=== PATIENT | female | born 1945 | race Caucasian/White ===

== ENCOUNTER 2020-03-29 14:19 | Outpatient (CLI) | payer MEDICARE, BC, SELFPAY ==
--- NOTE | ~2020-03-29 | XR_ITS ---
EXAMINATION: XR knee LT 2V DATE: 03/29/2020 15:05 INDICATION: Left knee pain. TECHNIQUE: 2 views of left knee were obtained. COMPARISON: None. FINDINGS: Bone alignment is normal. No fracture. There is mild osteoarthritis of medial and lateral c ompartments and moderate osteoarthritis of patellofemoral compartment. There is a moderate-sized knee joint effusion. IMPRESSION: 1. Moderate left knee osteoarthritis. 2. Moderate-sized left knee joint effusion. Reviewed, dictated and finalized at location B.
--- NOTE | ~2020-03-29 | US_ITS ---
EXAMINATION: US venous doppler [facility] EXAM DATE: 03/29/2020 15:08 INDICATION: Left calf swelling. TECHNIQUE: Multiple grayscale, color flow and Doppler images of the left lower extremity deep venous system were obtained and reviewed. There is no prior study for comparison. FINDINGS: The left common femoral, femoral and profunda veins demonstrate normal color flow, respirat ory variation, augmentation and compressibility. Compressibility, color flow confirmed within the le ft popliteal, posterior tibial, peroneal, and greater saphenous veins. IMPRESSION: 1. No left lower extremity deep venous thrombosis. Reviewed, dictated and finalized at location A.
== END 2020-03-29 14:20 | disposition home or self-care (01) ==
LOC: ANHIMG 14:29
PROVIDERS: PCP Internal Medicine; Visit Provider Nurse Practitioner
DX: M17.12 Unilateral primary osteoarthritis, left knee (principal); M25.462 Effusion, left knee
CPT/HCPCS: 73560; 93971

== ENCOUNTER 2020-04-25 06:57 | Emergency (ER) | payer MEDICARE, BC, SELFPAY ==
[2020-04-25] VITALS (7 sets, daily range): BP systolic 121–140; BP diastolic 61–88; PULSE 60–99; RESP 11–20; TEMP 36.6; O2SAT 99–100
--- NOTE | 2020-04-25 07:23 | ECG_ITS ---
Measurements Intervals [place] Rate: 72 P: 74 [place]: 153 QRS: -10 QRSD: 104 T: 69 QT: 356 QTc: 392 Interpretive Statements SINUS RHYTHM NORMAL ECG Electronically Signed On 04-25-2020 8:19:41 CDT by Herb Lozano D.O.
--- NOTE | 2020-04-25 07:49 | PC.NURSE ---
ERP AT BEDSIDE ASSESSING PT. PT TO ATTEMPT URINE SAMPLE WHEN DONE.
--- NOTE | 2020-04-25 07:51 | ED.DIZZY ---
HPI - Dizziness General Chief Complaint: Dizziness Stated Complaint: dizzy Time Seen by Provider: 04/25/20 07:07 Source: patient Mode of arrival: ambulatory Limitations: no limitations History of Present Illness HPI Narrative: THis patient is a 74 year old female who presents for evaluation of dizziness. She states she woke up around 5 am this morning. She noticed when she turned her head she developed spinning sensation. This feeling continued when she got up to use the restroom. She denies dizziness or vertigo now. She denies having associated nausea, vomiting, blurred vision, diplopia or headache. She has noticed over past 3 days she is having intermittent palpitations. She also denies focal weakness. Related Data Home Medications Medication Instructions Recorded Confirmed docusate sodium 100 mg capsule 100 mg PO DAILY PRN 09/14/19 03/28/20 polyethylene glycol 3350 17 17 gm PO DAILY 09/14/19 03/28/20 gram/dose oral powder naproxen sodium 220 mg tablet 220 mg PO Q12H PRN 03/28/20 03/28/20 Allergies Allergy/AdvReac Type Severity Reaction Status Date / Time No Known Allergies Allergy Unknown Uncoded 03/28/20 14:16 Review of Systems Review of Systems: All systems reviewed & are unremarkable except as noted in HPI and below Constitutional: Constitutional: Denies chills and Denies fever(s) Eyes: Eyes: Reports no additional eye complaints ENT: Reports dizziness and Denies nasal congestion Cardiovascular: Cardiovascular: Denies chest pain, Denies radiating jaw, neck or arm pain and Reports other (palpitation) Respiratory: Respiratory: Denies cough and Denies wheezing Gastrointestinal: Gastrointestinal: Denies abdominal pain, Reports diarrhea, Denies nausea and Denies vomiting Neurologic: Reports vertigo, Reports dizziness, Denies focal weakness and Denies numbness PMFSH Social History Social History Smoking status: Never smoker Alcohol intake: current Gender identity (if verbalized by the patient): Female Exam Narrative: Exam Narrative: GENERAL: Well-appearing, well-nourished, and in no acute distress. HEAD: Normocephalic, atraumatic EYES: PERRLA and EOMI, conjunctiva clear without discharge EARS: TM's clear bilaterally without erythema or dullness NOSE: Nares clear, no rhinorrhea or epistaxis THROAT:Mucous membranes moist, Oropharynx normal without erythema, exudate, peritonsillar swelling or fluctuance NECK: Supple, without lymphadenopathy or mass RESPIRATORY: No respiratory distress, Airway patent, Respirations non-labored, Clear to auscultation without rales, rhonchi or wheeze HEART: Regular rate and rhythm. No murmur heard. Normal peripheral pulses. ABDOMEN: Soft, nontender, nondistended, normal active bowel sounds. No masses. No rebound or guarding, No organomegaly. EXTREMITIES: No edema, normal strength with full range of motion. SKIN: Warm, dry, normal color without rash NEURO: Alert and oriented x3. CN 2-12 grossly intact. No focal deficits. PSYCH: Normal mood and affect. Course Reevaluation(s) Reevaluation #1: Patient has no symptoms. She reports she feels better. I Discussed labs are unremarkable. Date: 04/25/20 Time: 09:11 Vital Signs Vital signs: Vital Signs Temperature 97.9 F 04/25/20 07:09 Pulse Rate 79 04/25/20 07:09 Respiratory Rate 20 04/25/20 07:09 Blood Pressure 140/88 04/25/20 07:09 Pulse Oximetry 99 04/25/20 07:09 Temperature 97.9 F 04/25/20 07:09 Pulse Rate 63 04/25/20 09:21 Respiratory Rate 12 04/25/20 09:21 Blood Pressure 127/67 04/25/20 09:21 Pulse Oximetry 100 04/25/20 09:21 MDM - Dizziness Lab Data Attestation: I reviewed the patient's lab results. Result diagrams: 04/25/20 07:48 04/25/20 07:48 Labs: Lab Results 04/25/20 04/25/20 04/25/20 Range/Units 07:48 07:48 07:53 WBC 7.7 (4.5-10.0) K/mm3 RBC 4.
--- NOTE | 2020-04-25 08:02 | PC.NURSE ---
PT TO BATHROOM AT THIS TIME TO RETRIEVE UA, PT HAS STEADY GAIT, AMBULATED WITHOUT DIFFICULTY OR ASSISTANCE. DENIES DIZZINESS W/ AMBULATION.
[2020-04-25] MEDS: MECLIZINE HCL 25 MG TABLET PO (08:07)
[2020-04-25 08:09] LABS: Basophils Percent Auto 0.3 % (0.2-1.2); Eosinophils Absolute Auto 0.1 K/mm3 (0-0.3); Eosinophils Percent Auto 0.9 % (0-4.4); Hematocrit 40.8 % (37.0-47.0); Hemoglobin 13.5 g/dL (12.0-15.0); Immature Granulocyte Absolute 0.03 K/mm3 (0.00-0.031); Immature Granulocyte Percent A 0.4 % (0-0.5); Lymphocytes Percent Auto 20.7 % (18.3-44.2); Mean Corpuscular HGB Conc 33.1 g/dl (32-36); Mean Corpuscular Volume 96.7 fl (80-100); Mean Platelet Volume 8.8 fl (7.4-10.4); Monocytes Absolute Auto 0.3 K/mm3 (0.1-0.6); Monocytes Percent Auto 4.3 % (2.6-8.5); Neutrophils Absolute Auto 5.7 K/mm3 (1.3-6.7); Neutrophils Percent Auto 73.4 % (45.5-73.1); Platelet Count Result 204 k/mm3 (150-375); Red Blood Count 4.22 M/mm3 (4.2-5.4); Red Cell Distribution Width 13.3 % (11.5-14.5); White Blood Count 7.7 K/mm3 (4.5-10.0)
[2020-04-25 08:11] LABS: Add Urine Microscopic? NO; Appearance Urine Clear (Clear); Bilirubin Urine Negative (Negative); Blood Urine Negative (Negative); Color Urine Yellow (Yellow); Glucose Urine UA Negative (Negative); Ketones Urine Negative (Negative); Leukocyte Esterase Ur Negative LEU/UL (Negative); Nitrate Urine Negative (Negative); Protein Urine Negative (Negative); Specific Grav Ur 1.015 (1.001-1.035); Urobilinogen Urine Negative mg/dL (<2.0)
[2020-04-25 08:29] LABS: Alanine Aminotransferase 14 U/L (4-35); Alkaline Phosphatase 51 U/L (38-126); Anion Gap 9 mmol/L (8-16); Aspartate Amino Transferase 24 U/L (14-36); Bilirubin,Total 0.4 mg/dL (0.2-1.3); Blood Urea Nitrogen 16 mg/dL (7-17); Calcium 9.1 mg/dL (8.4-10.2); Carbon Dioxide 25 mmol/L (22-30); Chloride 108 mmol/L (98-107); Estimated CRCL calculation 52 ml/min; Estimated Glomerular Filt Rate > 60; Glucose 105 mg/dL (65-105); Magnesium 2.1 mg/dL (1.6-2.3); Potassium 4.3 mmol/L (3.4-5.0); Sodium 142 mmol/L (137-145)
[2020-04-25 08:32] LABS: Troponin I < 0.012 ng/mL (0.000-0.034)
== END 2020-04-25 09:23 | disposition home or self-care (01) ==
PROVIDERS: Emergency Provider General Practice; PCP Internal Medicine
DX: R42 Dizziness and giddiness (principal)
CPT/HCPCS: 36415; 80053; 81003; 83735; 84484; 85025; 93005; 99284; A9270

== ENCOUNTER → 2020-04-28 10:24 | Outpatient (CLI) | payer MEDICARE, BC, SELFPAY ==
--- NOTE | ~2020-04-28 | MM_ITS ---
EXAMINATION: MM screening [facility] BI w anthony HISTORY: Screening TECHNIQUE: Craniocaudal and mediolateral oblique 3-D tomosynthesis images were obtained and synthetic 2-D images were generated. CAD analysis was submitted and interpreted. COMPARISON: Comparison to multiple prior studies sequentially, with oldest reviewed study dated 06/19. BREAST PARENCHYMAL COMPOSITION: There are scattered areas of fibroglandular density. FINDINGS: There are stable benign-appearing breast calcifications. There is no evidence of suspicious mass, calcification, or architectural distortion to suggest malignancy in either breast. There has b een no suspicious interval change. IMPRESSION: 1. No mammographic evidence of malignancy. 2. Recommend routine screening mammography in one year. BI-RADS Category 2: Benign finding(s). Reviewed, dictated and finalized at location A.
== END ==
PROVIDERS: PCP Internal Medicine; Visit Provider Obstetrics & Gynecology
DX: Z12.31 Encounter for screening mammogram for malignant neoplasm of breast (principal)
CPT/HCPCS: 77063; 77067

== ENCOUNTER 2020-05-08 11:05 | Outpatient (CLI) | payer MEDICARE, BC, SELFPAY ==
--- NOTE | 2020-05-11 14:58 | WPDHOLTEREM ---
Holter/Event Monitor Holter/Event Monitor Date of procedure: 05/08/20 Procedure Type: 48 hour holter monitor Indications: Palpitations Conclusion: 1. 48 hour holter monitor on 05/08/20. 2. Predominant rhythm is sinus rhythm. HR range 45-143 bpm; average HR 70 bpm. 3. There are 409 premature supraventricular complexes, 19 supraventricular couplets. There are 26 episodes of atrial tachycardia, fastest at 174 bpm and longest lasting 77 beats. 4. There are 158 premature ventricular complexes. One episode of ventricular tachycardia at 128 bpm lasting 8 beats. 5. No sinoatrial or atrioventricular blocks. No significant pauses greater than 2 seconds. 6. Patient reports fast heart beat, lightheadedness, flutters which demonstrate sinus rhythm, HR range 67-83 bpm.
== END 2020-05-08 11:06 | disposition home or self-care (01) ==
PROVIDERS: PCP Internal Medicine; Visit Provider Internal Medicine
DX: R00.2 Palpitations (principal)
CPT/HCPCS: 93225; 93226

== ENCOUNTER 2020-09-18 11:04 | Outpatient (CLI) | payer MEDICARE, BC, SELFPAY ==
--- NOTE | 2020-09-20 12:52 | WPDHOLTEREM ---
Holter/Event Monitor Holter/Event Monitor Date of procedure: 09/18/20 Procedure Type: 24 hour holter monitor Indications: Palpitations Conclusion: 1. 24 hour holter monitor on 09/18/20. 2. Underlying rhythm is sinus rhythm with sinus arrhythmia. HR range 48-115 bpm; average HR 69 bpm. 3. There are 165 premature supraventricular complexes. No supraventricular tachycardia. 4. There are 72 premature ventricular complexes. No ventricular tachycardia. 5. No sinoatrial or atrioventricular blocks. No significant pauses greater than 2 seconds. 6. Patient reports symptoms of lightheadedness and palpitations which demonstrate sinus rhythm, HR range 74-86 bpm.
== END 2020-09-18 11:05 | disposition home or self-care (01) ==
PROVIDERS: Family Provider Internal Medicine; PCP Internal Medicine; Visit Provider Internal Medicine
DX: R00.2 Palpitations (principal)
CPT/HCPCS: 93225; 93226

== ENCOUNTER 2020-11-04 09:53 | Outpatient (CLI) | payer MEDICARE, BC, SELFPAY ==
--- NOTE | ~2020-11-04 | DEXA_ITS ---
Bone Density Report Name: Lenka Florence Age: 75 Sex: Female Ethnicity: White Date of : 1945 Indication: postmenopausal; height loss; hysterectomy; Referring Provider: Bhumi Tiwari Study: Bone densitometry was performed. Exam Date: November 04, 2020 Accession number: [id number] Bone Density: Region BMD T-score Z-score Classification AP Spine (L1, L2, L4) 1.113 0.7 3.0 Normal Femoral Neck (Left) 0.736 -1.0 1.0 Normal Total Hip (Left) 0.806 -1.1 0.6 Osteopenia Total Hip Bilateral Avg 0.801 -1.2 0.6 Osteopenia Femoral Neck (Right) 0.757 -0.8 1.2 Normal Total Hip (Right) 0.796 -1.2 0.5 Osteopenia World Health Organization criteria for BMD impression classify patients as: Normal (T-score at or above -1.0), Osteopenia (T-score between -1.0 and -2.5), or Osteoporosis (T-score at or below -2.5). 10-year Fracture Risk(1): Major Osteoporotic Fracture 9.3% Hip Fracture 1.3% Reported Risk Factors: [place] (), Neck BMD=0.736, BMI=24.0 (1) FRAX(R) Version 3.08. Fracture probability calculated for an untreated patient. Fracture probability may be lower if the patient has received treatment. Clinical Information Provided by Patient: Has the following medical conditions: Hysterectomy Patient maximum height was 67 Menopause Age: 39 No regular weight bearing exercise Drinks caffeinated beverages Onset of menses at age 13 Number of children 0 Impression: The patient has low bone mass, based on the Right Total Hip T-score. The patient has an estimated ten-year risk of hip fracture of 1.3% and an estimated ten-year risk of major fracture of 9.3%, based on the WHO FRAX algorithm. Discussion: BONE DENSITY IS LOW AT ONE OR MORE SKELETAL SITES. This patient's lowest T-score is low at one or more skeletal sites. It meets the World Health Organization's (WHO) criteria for ?low bone mass? (T-score between -1.0 and -2.5). The patient's 10-year risk of fracture as calculated by FRAX is less than the threshold where pharmacological therapy is recommended by the National Osteoporosis Foundation (NOF). However, all treatment decisions require clinical judgment and consideration of individual patient factors, including patient preferences, comorbidities, previous drug use, risk factors not captured in the FRAX model (e.g., frailty, falls, vitamin D deficiency, increased bone turnover, interval significant decline in bone density) and possible under or overestimation of fracture risk by FRAX. The patient should follow a healthful lifestyle (good nutrition with adequate calcium and vitamin D, and appropriate weight-bearing exercise). Follow-Up: Consider repeating this study in 2 to 3 years to reassess this patient's status, or sooner if there is some new clinical indication. Reported by: [facility] on 11/04/2020
== END 2020-11-04 09:54 | disposition home or self-care (01) ==
LOC: ANHIMG 09:55
PROVIDERS: PCP Internal Medicine; Visit Provider Nurse Practitioner
DX: Z78.0 Asymptomatic menopausal state (principal); M85.852 Other specified disorders of bone density and structure, left thigh; M85.851 Other specified disorders of bone density and structure, right thigh
CPT/HCPCS: 77080

== ENCOUNTER 2020-11-16 09:45 | Outpatient (CLI) | payer MEDICARE, BC, SELFPAY ==
--- NOTE | ~2020-11-16 | XR_ITS ---
EXAMINATION: XR chest 2V 11/16/2020 10:01 INDICATION: Shortness of breath PROCEDURE: PA and lateral views of the chest COMPARISON: 12/11/2017 FINDINGS: The lungs are clear. The cardiomediastinal silhouette is within normal limits. There are no pleural effusions. There is no pneumothorax suspected. There are cholecystectomy clips. IMPRESSION: 1: NO ACUTE CARDIOPULMONARY DISEASE. Reviewed, dictated and finalized at location B.
== END 2020-11-16 09:46 | disposition home or self-care (01) ==
LOC: ANHIMG 09:51
PROVIDERS: PCP Internal Medicine; Visit Provider Internal Medicine
DX: R06.02 Shortness of breath (principal)
CPT/HCPCS: 71046

== ENCOUNTER → 2021-04-30 12:18 | Outpatient (CLI) | payer MEDICARE, BC, SELFPAY ==
--- NOTE | ~2021-04-30 | MM_ITS ---
EXAMINATION: MM screening [facility] BI w anthony HISTORY: Screening TECHNIQUE: Craniocaudal and mediolateral oblique 3-D tomosynthesis images were obtained and synthetic 2-D images were generated. CAD analysis was submitted and interpreted. COMPARISON: Comparison to multiple prior studies sequentially, with oldest reviewed study dated 06/19. BREAST PARENCHYMAL COMPOSITION: There are scattered areas of fibroglandular density. FINDINGS: There is no evidence of suspicious mass, calcification, or architectural distortion to sugg est malignancy in either breast. There has been no suspicious interval change. IMPRESSION: 1. No mammographic evidence of malignancy. 2. Recommend routine screening mammography in one year. BI-RADS Category 1: Negative Reviewed, dictated and finalized at location A.
== END ==
PROVIDERS: PCP Internal Medicine; Visit Provider Obstetrics & Gynecology
DX: Z12.31 Encounter for screening mammogram for malignant neoplasm of breast (principal)
CPT/HCPCS: 77063; 77067

== ENCOUNTER 2021-10-02 07:51 | Observation (INO) | payer MEDICARE, BC, SELFPAY ==
[2021-10-02] VITALS (14 sets, daily range): BP systolic 119–179; BP diastolic 62–84; PULSE 65–112; RESP 17–18; TEMP 36.8–36.9; O2SAT 97–98; BMI 23.4
--- NOTE | 2021-10-02 | ECHO_ITS ---
Patient Info Name: Lenka Florence Age: 76 years : 1945 Gender: Female Ht: 66 in Wt: 145 lbs BSA: 1.76 m2 HR: 72 bpm BP: 135 / 72 mmHg Heart Rhythm: Sinus Rhythm Technical Quality: Fair Exam Date: 10/02/2021 4:58 PM Exam Location: [facility] Card Pulmonary Patient Status: Inpatient Admit Date: 10/02/2021 Staff Ordering Physician: Rosario Ennis NP Bracelet Form Coverer: Mari Dumont RDCS Attending Provider: Luis Miguel Christianson MD Referring Physician: Loli ROBERSON; Exam Type: CA echo doppler color flow Study Info Indications - syncope Complete two-dimensional, color flow and Doppler transthoracic echocardiogram is performed. Summary 1. Complete two-dimensional, color flow and Doppler transthoracic echocardiogram is performed. 2. Left ventricular chamber dimension is normal. 3. Left ventricular systolic function is normal, estimated at 60-65%. 4. The left ventricular diastolic function is grade II diastolic dysfunction. 5. E/e' 9 is minimally elevated. 6. There is trace aortic valve regurgitation. 7. There is mild mitral valve regurgitation. 8. There is mild tricuspid valve regurgitation. 9. No pulmonary hypertension, estimated pulmonary arterial systolic pressure is 34 mmHg. 10. There is trace pulmonic regurgitation. Left Ventricle E/e' 9 is minimally elevated. Left ventricular chamber dimension is normal. Left ventricular systolic function is normal, estimated at 60-65%. The left ventricular diastolic function is grade II diastolic dysfunction. Right Ventricle Right ventricular systolic function is normal and with normal TAPSE 1.8 cm. Right ventricular chamber dimension is normal. Left Atria Left atrial chamber dimension is normal. Right Atria Right atrial chamber dimension is normal. Aortic Valve The aortic valve is trileaflet. There is no aortic valve stenosis. There is trace aortic valve regurgitation. Pulmonic Valve There is trace pulmonic regurgitation. Mitral Valve There is no mitral valve stenosis. There is mild mitral valve regurgitation. Tricuspid Valve There is mild tricuspid valve regurgitation. No pulmonary hypertension, estimated pulmonary arterial systolic pressure is 34 mmHg. Pericardium/Pleural There is no pericardial effusion. Inferior Vena Cava Normal inferior vena cava with >50% collapse upon inspiration consistent with normal right atrial pressure, 5 mmHg. Aorta The aortic root size at the sinus of Valsalva is normal. Left Ventricular Outflow Tract Name Value Normal LVOT 2D LVOT Diameter 2.0 cm LVOT Doppler LVOT Peak Gradient 3 mmHg LVOT Mean Gradient 2 mmHg LVOT VTI 19 cm LVOT VTI/AV VTI Ratio 0.7 LVOT Stroke Volume 61 ml LVOT CO 4.3 l/min LVOT CI 2.4 l/min/m2 Pulmonic Valve Name Value Normal -
--- NOTE | ~2021-10-02 | XR_ITS ---
EXAMINATION: XR chest 1V DATE: 10/02/2021 08:38 INDICATION: Syncope. TECHNIQUE: A single frontal view of the chest was obtained. COMPARISON: Chest 2 views 11/16/2020 FINDINGS: The chest demonstrates clear lungs without pneumonia, pleural effusion, or pneumothorax. Th e heart size is normal. IMPRESSION: 1. No acute cardiopulmonary disease. Reviewed, dictated and finalized at location A. PORTER
--- NOTE | ~2021-10-02 | US_ITS ---
US abdomen limited DATE: 10/03/2021 10:20 INDICATION: Abdominal mass TECHNIQUE: Real-time imaging of liver, gallbladder fossa, pancreas COMPARISON: 02/17/2017 MRI abdomen 04/29/2014 CT abdomen pelvis 02/17/2014 abdominal ultrasound FINDINGS: Right hepatic hyperechoic approximately 1.3 cm lesion is consistent with hemangioma. Normal hepatopedal portal venous flow direction. The gallbladder is surgically absent. The common bile duct measures 4 mm, normal. No pancreatic mass lesion is observed. There is an approximately 2.1 x 3.7 x 5.5 cm heterogeneous nonspecific soft tissue density, with some internal vascularity on color flow imaging, in the subcutaneous tissues of the right flank at the ar ea of complaint of lump; consider ultrasound-guided biopsy. IMPRESSION: 2.1 x 3.7 x 5.5 cm subcutaneous nonspecific soft tissue mass in the right flank; consider ultrasound-guided biopsy Status post cholecystectomy 1.3 cm right hepatic hemangioma Reviewed, dictated and finalized at Location A. Reviewed, dictated and finalized at location B. HER PRODUCTION
--- NOTE | ~2021-10-02 | CT_ITS ---
EXAMINATION: CT brain wo con DATE: 10/02/2021 08:36 INDICATION: Syncope, dizziness. Posterior head injury last Friday TECHNIQUE: Computed tomography (CT) of the head was performed without intravenous contrast. The mA wa s adjusted according to patient size. Iterative reconstruction technique was employed. Exam dose: 60 5.33 mGy-cm total exam DLP. COMPARISON: None FINDINGS: Cavum septum pellucidum and cavum surgery, anatomic variations. There is mild to moderate cerebellar and more prominent cortical cerebral volume loss. Prominent bilateral carotid siphon internal carotid artery calcifications. There is nonspecific dimin ished attenuation of the cerebral white matter, likely due to chronic small vessel ischemic change. T here is a small chronic lacunar infarct in the right posterior parietal white matter. No intracranial mass lesion or hemorrhage or cerebrovascular accident is noted otherwise. No midline shift or mass effect. No subdural or epidural hematoma is detected. There is mild focal mucoperiosteal thickening and mucus retention cyst or polyp in the left sphenoid sinus. No fracture or bone destruction of the cranial vault. IMPRESSION: Cerebral atherosclerosis and chronic small vessel ischemic changes of the cerebral white matter Small chronic lacunar infarct in the posterior right parietal white matter No acute intracranial finding or skull fracture Reviewed, dictated and finalized at Location A. Reviewed, dictated and finalized at location B. 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
--- NOTE | ~2021-10-02 | MR_ITS ---
EXAMINATION: MR brain/brain stem wo/w con DATE: 10/03/2021 09:32 INDICATION: Syncope. TECHNIQUE: Magnetic resonance imaging (MRI) of the brain and brainstem was performed without and with 13 mL MultiHance intravenous contrast. Sequences included sagittal and axial T1-weighted FSE, axial diffusion-weighted FS EPI, axial T2*-weighted GRE, axial T2-weighted FLAIR Propeller, axial SWAN, and axial T2-weighted Propeller. Postcontrast sequences included axial and coronal T1-weighted FSE. Appa rent diffusion coefficient (ADC) maps were created. COMPARISON: Head CT 10/02/2021 FINDINGS: There are scattered areas of nonspecific increased T2-weighted signal intensity in the cere bral white matter, which is within normal limits for the patient's age. There is a small old infarct in the right parietal lobe deep white matter. There is no intracranial hemorrhage, acute infarction, or abnormal intracranial mass lesion. The ventricles are normal in size. Cavum septum callosum and ve rgae are noted. There is mild mucosal thickening in the paranasal sinuses. The orbits are normal. The re is a trace right mastoid effusion. IMPRESSION: 1. Small old infarct in the right parietal lobe deep white matter. Reviewed, dictated and finalized at location A. 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
--- NOTE | ~2021-10-02 | US_ITS ---
EXAMINATION: US carotid duplex BI DATE: 10/03/2021 10:20 INDICATION: Syncope. TECHNIQUE: Grayscale, color Doppler, and pulsed Doppler images of the cervical carotid arteries were obtained. The degree of vessel stenosis is placed in one of the following categories: normal, <50%, 5 0-69%, >=70% but less than near-occlusion, near-occlusion, or total occlusion. Note that percent sten osis relative to normal distal artery lumen diameter is indirectly measured from velocity measurement s as described by Navi, et al. Radiology 2003; [id number]:[id number]. COMPARISON: None. FINDINGS: RIGHT: The right common carotid artery (CCA) peak systolic velocity (PSV) is 101 cm/s. The right internal ca rotid artery (ICA) PSV is 87 cm/s. The right ICA end-diastolic velocity (EDV) is 18 cm/s. The right I CA/CCA PSV ratio is 0.9. Grayscale and color Doppler images yield an estimate of <50% diameter reduct ion from plaque in the ICA. There is antegrade flow in the right vertebral artery. LEFT: The left CCA PSV is 76 cm/s. The left ICA PSV is 79 cm/s. The left ICA EDV is 29 cm/s. The left ICA/C CA PSV ratio is 1.0. Grayscale and color Doppler images yield an estimate of <50% diameter reduction from plaque in the ICA. There is antegrade flow in the left vertebral artery. IMPRESSION: 1. <50% stenosis in the right internal carotid artery. 2. <50% stenosis in the left internal carotid artery. Reviewed, dictated and finalized at location A. CTOR OF REIMBURSEMENT
--- NOTE | ~2021-10-02 | CT_ITS ---
EXAMINATION: CT cervical spine wo con DATE: 10/02/2021 09:39 INDICATION: Neck pain TECHNIQUE: Computed tomography (CT) of the cervical spine was performed without intravenous contrast. The dose-length product (DLP) was 120.59 mGy-cm. Automated exposure control and iterative reconstruc tion technique were employed. COMPARISON: None FINDINGS: There is no fracture, dislocation, or subluxation. There is mild reversal of the normal cer vical lordosis. The odontoid is intact. There is moderate loss of intervertebral disc space height at C5-6 and mild loss of disc space height at C4-5 and C6-7. The odontoid is intact. Small degenerative osteophytes project from the anterior endplates of multiple vertebral bodies. The prevertebral soft tissues are normal. There is mild to moderate multilevel facet and uncovertebral joint osteoarthritis . Bilateral thyroid nodules measure up to 9 mm on the left. IMPRESSION: 1. Mild cervical spondylosis without acute findings. Reviewed, dictated and finalized at location A. 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
--- NOTE | 2021-10-02 08:05 | ECG_ITS ---
Measurements Intervals [place] Rate: 69 P: 66 [place]: 162 QRS: -18 QRSD: 108 T: 55 QT: 374 QTc: 402 Interpretive Statements SINUS RHYTHM BASELINE ARTIFACT- I, II, III, AVR, AVL, AVF, V4-V6 NORMAL ECG Electronically Signed On 10-02-2021 9:40:40 INDUSTRIAL EDUCATION INSTRUCTOR by Herb Lozano D.O.
--- NOTE | 2021-10-02 08:22 | ED.SYNCOPE ---
HPI - Syncope General Chief Complaint: Dizziness Stated Complaint: dizzy Time Seen by Provider: 10/02/21 07:58 Source: patient Mode of arrival: ambulatory Limitations: no limitations History of Present Illness HPI narrative: Patient is a 76-year-old female complaining of a syncopal episode at home that lasted for less than a minute, witnessed by . Patient states that she felt lightheaded and dizzy prior to passing out. Patient states that she has a history of vertigo. Patient was able to stand up and ambulate after the syncopal episode. Patient denies any headache, speech or visual disturbance, focal weakness or numbness, unsteady gait, chest pain, shortness breath, abdominal pain, nausea, vomiting, diarrhea, fever or chills. Related Data Home Medications Medication Instructions Recorded Confirmed polyethylene glycol 3350 17 17 gm PO DAILY 09/14/19 09/26/21 gram/dose oral powder cholecalciferol (vitamin D3) 50 50 mcg PO DAILY 09/26/21 09/26/21 mcg (2,000 unit) tablet Allergies Allergy/AdvReac Type Severity Reaction Status Date / Time No Known Allergies Allergy Verified 10/02/21 08:28 Review of Systems Review of Systems: All systems reviewed & are unremarkable except as noted in HPI and below Constitutional: Constitutional: Denies body ache(s), Denies chills, Denies excessive sweating, Denies fatigue, Denies fever(s), Denies headache(s), Denies lethargy, Denies malaise, Denies weakness and Denies weight loss Eyes: Eyes: Denies blurry vision, Denies change in vision and Denies loss of vision ENT: Denies dizziness, Denies ear discharge, Denies headache(s), Denies lip swelling, Denies epistaxis, Denies nasal congestion, Denies neck pain, Denies throat swelling and Denies tongue swelling Cardiovascular: Cardiovascular: Denies chest pain, Denies chest pain at rest, Denies chest pain with activity, Denies diaphoresis, Denies rapid heart rate, Denies edema, Denies irregular heart rhythm, Denies lightheadedness, Denies palpitations, Denies dyspnea and Denies dyspnea on exertion Respiratory: Respiratory: Denies chest congestion, Denies cough, Denies hemoptysis, Denies dyspnea and Denies dyspnea on exertion Gastrointestinal: Gastrointestinal: Denies abdominal pain, Denies melena, Denies hematochezia, Denies diarrhea, Denies nausea, Denies vomiting and Denies hematemesis Musculoskeletal: Musculoskeletal: Denies abnormal gait, Denies deformity, Denies joint swelling, Denies limited range of motion, Denies neck pain and Denies numbness Neurologic: Denies Abnormal speech present, Denies abnormal gait, Denies confusion, Denies headache(s), Denies focal weakness, Denies loss of vision, Denies numbness, Denies Other visual disturbances, Denies Sensory deficit (Neuro) and Denies weakness Psychiatric: Psychiatric: Denies confusion, Denies depression, Denies auditory hallucinations, Denies homicidal ideation and Denies suicidal ideation Endocrine: Endocrine: Denies cold intolerance, Denies excessive sweating, Denies fatigue, Denies heat intolerance and Denies palpitations Hematologic/Lymphatic: Hematologic/Lymphatic: Denies easy bleeding and Denies easy bruising Allergic/Immunologic: Allergic/Immunologic: Denies lip swelling, Denies throat swelling and Denies tongue swelling PMFSH Past Medical History Medical History Anxiety, generalized Constipation Cyst of pancreas Degenerative joint disease of knee Dizziness Hx of colonic polyp Knee joint effusion Left knee DJD Left knee pain Lipoma of abdominal wall Lipoma of right thigh Liver hemangioma Nonspecific abnormality on liver isotope scan Other irritable bowel syndrome Pain of left calf Palpitations Postmenopausal Screening for breast cancer Stress incontinence (female) (male) Surgical History Surgical History H/O hysterectomy for benign disease History of
[2021-10-02 08:41] LABS: Basophils Percent Auto 0.3 % (0.2-1.2); Eosinophils Absolute Auto 0.1 K/mm3 (0-0.3); Eosinophils Percent Auto 2.2 % (0-4.4); Hematocrit 38.6 % (37.0-47.0); Immature Granulocyte Absolute 0.01 K/mm3 (0.00-0.031); Immature Granulocyte Percent A 0.3 % (0-0.5); Lymphocytes Absolute Auto 1.44 K/mm3 (0.9-3.2); Lymphocytes Percent Auto 39.9 % (18.3-44.2); Mean Corpuscular HGB Conc 33.7 g/dl (32-36); Mean Corpuscular Hemoglobin 32.7 pg (26-34); Mean Corpuscular Volume 97.2 fl (80-100); Mean Platelet Volume 8.8 fl (7.4-10.4); Monocytes Absolute Auto 0.4 K/mm3 (0.1-0.6); Monocytes Percent Auto 10.2 % (2.6-8.5); Neutrophils Absolute Auto 1.7 K/mm3 (1.3-6.7); Neutrophils Percent Auto 47.1 % (45.5-73.1); Platelet Count Result 202 k/mm3 (150-375); Red Blood Count 3.97 M/mm3 (4.2-5.4); Red Cell Distribution Width 12.8 % (11.5-14.5); White Blood Count 3.6 K/mm3 (4.5-10.0)
[2021-10-02] MEDS: LACTATED RINGERS 1,000 ML 999 ML IV CONT (08:49)
[2021-10-02 08:58] LABS: Partial Thromboplastin Time 27.3 SECONDS (22.3-36.8); Prothrombin Time 12.6 Seconds (11.1-14.7)
[2021-10-02 09:01] LABS: D Dimer 0.36 ug/mL (<0.48)
[2021-10-02 09:19] LABS: Alanine Aminotransferase 18 U/L (4-35); Albumin Level 4.1 g/dL (3.5-5.1); Alkaline Phosphatase 55 U/L (38-126); Anion Gap 7 mmol/L (8-16); Aspartate Amino Transferase 24 U/L (14-36); Bilirubin,Total 0.5 mg/dL (0.2-1.3); Blood Urea Nitrogen 19 mg/dL (7-17); Carbon Dioxide 25 mmol/L (22-30); Chloride 105 mmol/L (98-107); Estimated CRCL calculation 45 ml/min; Estimated Glomerular Filt Rate > 60; Glucose 103 mg/dL (65-110); Potassium 4.3 mmol/L (3.4-5.0); Sodium 137 mmol/L (137-145)
[2021-10-02 09:32] LABS: Troponin I < 0.012 ng/mL (0.000-0.034)
--- NOTE | 2021-10-02 13:20 | ADMGEN ---
This patient, Lenka Florence, was admitted to 2 Medical Room 260-01. Patient/family oriented to hospital policies and general routines including ID bracelet, bed and alarms, visiting hours, pain management, procedures, bathroom and other care routines, personal items, smoking policy, room service/diet, and visiting hours. Information on how to activate the Rapid Response Team has been discussed. Patient/Family are encouraged to report perceived risks to care and to ask questions if they do not understand what they are told or what they should do.
--- NOTE | 2021-10-02 16:27 | PM.IMHP ---
H&P: HPI History of Present Illness Date/Time: 10/02/21 1520 this is a 76-year-old female patient who has a history of having vertigo in the past. The patient had an episode a year ago where she had vertigo was placed on meclizine. The patient has not had any problems with dizziness since then. The patient came in today complaining of a syncopal episode at home that lasted for less than a minute. This was witnessed by her . The patient stated that that she has not taken any meclizine for while. She stated that she felt nauseated on Friday and fell and hit the left side of her head was having some pain to her neck and her head. The patient denies any fever chills. Cervical spine CT mild cervical spondylosis without acute findings. Chest x-ray was read as no acute cardiopulmonary disease. Head CT was read as the following Cerebral atherosclerosis and chronic small vessel ischemic changes of the cerebral white matter Small chronic lacunar infarct in the posterior right parietal white matter No acute intracranial finding or skull fracture. I read these reports to the patient and she was not aware that she even had a stroke in the past. The patient was started on lactated Ringer's in the emergency room. White count is 3.6. The patient is being admitted to observation status on the date of service 10/02/2021. Chief Complaint: syncope Review of Systems Review of Systems: All systems reviewed & are unremarkable except as noted in HPI and below Constitutional: Constitutional: Reports as per HPI and Reports no additional constitutional complaints Eyes: Eyes: Reports as per HPI and Reports no additional eye complaints ENT: Reports system reviewed and no additional complaints, except as documented and Reports Normal hearing present Cardiovascular: Cardiovascular: Reports no additional cardiovascular complaints Respiratory: Respiratory: Reports no additional respiratory complaints and Reports no additional respiratory complaints Gastrointestinal: Gastrointestinal: Reports as per HPI and Reports no additional gastrointestinal complaints Musculoskeletal: Musculoskeletal: Reports no additional musculoskeletal complaints Integumentary/Breasts: Skin/Breast: Reports system reviewed and no additional complaints, except as docu and Reports as per HPI Neurologic: Reports system reviewed and no additional complaints, except as documented, Reports as per HPI and Reports Normal hearing present Psychiatric: Psychiatric: Reports no additional psychiatric complaints and Reports as per HPI Endocrine: Endocrine: Reports no additional endocrine complaints Hematologic/Lymphatic: Hematologic/Lymphatic: Reports no additional hematologic/lymphatic complaints Allergic/Immunologic: Allergic/Immunologic: Reports no additional allergic/immunologic complaints [facility] Past Medical History Medical History (Updated 10/02/21 @ 17:00 by Rosario Ennis NP) Anxiety, generalized Constipation Cyst of pancreas Degenerative joint disease of knee Dizziness Hx of colonic polyp Knee joint effusion Left knee DJD Left knee pain Lipoma of abdominal wall Lipoma of right thigh Liver hemangioma Nonspecific abnormality on liver isotope scan Other irritable bowel syndrome Pain of left calf Palpitations Postmenopausal Screening for breast cancer Stress incontinence (female) (male) Surgical History Surgical History (Updated 10/02/21 @ 16:39 by Rosario Ennis NP) H/O hysterectomy for benign disease History of appendectomy History of bladder suspension procedure Hx laparoscopic cholecystectomy Family History Family History Sibling Hypertension Mother Patient's mother is Acute myocardial infarction Father Patient's father is Acute myocardial infarction Other Diabetes mellitus Family history of arthritis Heart disease Social History Social His
--- NOTE | 2021-10-02 16:36 | ECG_ITS ---
Measurements Intervals [place] Rate: 59 P: 63 [place]: 168 QRS: -16 QRSD: 101 T: 47 QT: 392 QTc: 391 Interpretive Statements SINUS BRADYCARDIA INCOMPLETE RIGHT BUNDLE BRANCH BLOCK BASELINE WANDER- V6 BORDERLINE ECG Electronically Signed On 10-02-2021 20:16:35 JUNIOR ART DIRECTOR by Herb Lozano D.O.
[2021-10-02] MEDS: MECLIZINE HCL 6.25 MG TABLET PO (18:07)
[2021-10-02] MEDS: traZODone HCL 50 MG TABLET PO (20:19)
[2021-10-02] MEDS: PROPRANOLOL HCL 20 MG TABLET BY MOUTH (20:19)
[2021-10-03] VITALS (13 sets, daily range): BP systolic 114–139; BP diastolic 61–70; PULSE 60–92; RESP 16–17; TEMP 36.3–36.6; O2SAT 98–100
[2021-10-03 06:21] LABS: Basophils Percent Auto 0.6 % (0.2-1.2); Eosinophils Absolute Auto 0.1 K/mm3 (0-0.3); Eosinophils Percent Auto 2.9 % (0-4.4); Hematocrit 35.9 % (37.0-47.0); Lymphocytes Absolute Auto 1.75 K/mm3 (0.9-3.2); Lymphocytes Percent Auto 56.5 % (18.3-44.2); Mean Corpuscular HGB Conc 33.4 g/dl (32-36); Mean Corpuscular Hemoglobin 32.4 pg (26-34); Mean Platelet Volume 8.6 fl (7.4-10.4); Monocytes Absolute Auto 0.3 K/mm3 (0.1-0.6); Monocytes Percent Auto 8.7 % (2.6-8.5); Neutrophils Percent Auto 31.3 % (45.5-73.1); Platelet Count Result 187 k/mm3 (150-375); Red Cell Distribution Width 12.7 % (11.5-14.5); White Blood Count 3.1 K/mm3 (4.5-10.0)
[2021-10-03 06:39] LABS: Lactic Acid Reflex 0.5 mmol/L (0.7-2.1)
[2021-10-03 06:47] LABS: Alanine Aminotransferase 14 U/L (4-35); Albumin Level 3.5 g/dL (3.5-5.1); Alkaline Phosphatase 43 U/L (38-126); Anion Gap 8 mmol/L (8-16); Aspartate Amino Transferase 22 U/L (14-36); Bilirubin,Total 0.5 mg/dL (0.2-1.3); Blood Urea Nitrogen 14 mg/dL (7-17); CRP 0.6 mg/dL (<1.0); Calcium 8.8 mg/dL (8.4-10.2); Carbon Dioxide 25 mmol/L (22-30); Chloride 106 mmol/L (98-107); Estimated CRCL calculation 50 ml/min; Estimated Glomerular Filt Rate > 60; Glucose 98 mg/dL (65-110); Lactate Dehydrogenase 303 U/L (313-618); Lipase 170 U/L (23-300); Magnesium 2.1 mg/dL (1.6-2.3); Potassium 3.9 mmol/L (3.4-5.0); Sodium 139 mmol/L (137-145)
[2021-10-03 06:48] LABS: D Dimer < 0.27 ug/mL (<0.48)
[2021-10-03] MEDS: CHOLECALCIFEROL 1,000 UNITS TABLET 2000 UNITS PO (10:15)
[2021-10-03] MEDS: MECLIZINE HCL 6.25 MG TABLET PO ×3 (10:16→16:36)
[2021-10-03] MEDS: ASPIRIN 325 MG ENTERIC TABLET PO (10:16)
--- NOTE | 2021-10-03 13:50 | PM.IMPN ---
Progress Note: A&P Assessment and Plan (1) Syncope: Qualifiers: Syncope type: unspecified Qualified Code(s): R55 - Syncope and collapse Code(s): R55 - Syncope and collapse Status: Acute Assessment and Plan: Patient episode of syncope on Friday morning around morning. She was getting up to the bathroom and felt nauseous, she was then standing up in her bathroom and call for her by the time he came to the bathroom she was beginning to pass out and slowly, sat herself down but she still fell backwards striking the back of her head on her tile floor. She only lost consciousness for less than a minute was back to her baseline. At that time she decided not to come to the emergency room for further evaluation. But she continued to have some lightheadedness with getting up and continued to have pain to the back of her head so she decided to come in on Friday10/02/2021 for further evaluation workup. Initial labs showed elevated blood pressure 179/82, heart rate at 71 beats per minute, afebrile, 98% on room air. Patient had leukopenia at 3600, normal H&H, normal platelet count, normal coag panel, negative D-dimer. Normal renal function other than slightly elevated BUN at 19. Normal electrolytes, normal LFTs. Normal lactic acid. Normal LDH, CRP. TSH normal, lipase normal. Normal urinalysis. CT head showed Cerebral atherosclerosis and chronic small vessel ischemic changes of the cerebral white matter. Small chronic lacunar infarct in the posterior right parietal white matter. No acute intracranial finding or skull fracture. Cervical Spine showed Mild cervical spondylosis without acute findings. CXR showed No acute cardiopulmonary disease. She was admitted the hospital for further evaluation workup due to syncopal episode. MRI was completed showing Small old infarct in the right parietal lobe deep white matter. Carotid US showed <50% stenosis in the right internal carotid artery. <50% stenosis in the left internal carotid artery. Echocardiogram showed Left ventricular chamber dimension is normal. Left ventricular systolic function is normal, estimated at 60-65%. The left ventricular diastolic function is grade II diastolic dysfunction. E/e' 9 is minimally elevated. She was placed on telemetry which showed a normal sinus rhythm with a heart rate of 69 beats per minute, with multiple episodes of sinus tachycardia verses atrial flutter with heart rate is high as 148 beats per minute. The patient has been taking her propranolol at night for rate control and palpitations MRI did show an old stroke, she had a syncopal episode and now having some tachycardia episodes so I wanted to consult cardiology for further evaluation and workup to rule out atrial fibrillation versus atrial flutter. Patient was started on enteric-coated aspirin 81 mg daily Continue monitoring on telemetry. (2) Tachycardia: Code(s): R00.0 - Tachycardia, unspecified Status: Acute Assessment and Plan: See above (3) Palpitations: Code(s): R00.2 - Palpitations Status: Acute Assessment and Plan: Patient is on propanolol. Telemetry shows some tachycardia episodes so Cardiology was consulted Appreciate cardiology's input. Will continue monitoring in telemetry (4) Abdominal mass: Code(s): R19.00 - Intra-abdominal and pelvic swelling, mass and lump, unspecified site Status: Acute Assessment and Plan: The patient had been ordered an ultrasound outpatient but her time was not scheduled as of yet. I called outpatient ultrasound and notified them that it would be done inpatient instead of outpatient tubbs. Abd US showed 2.1 x 3.7 x 5.5 cm subcutaneous nonspecific soft tissue mass in the right flank; consider ultrasound-guided biopsy. Status post cholecyste
[2021-10-03] MEDS: PROPRANOLOL HCL 20 MG TABLET BY MOUTH (20:18)
[2021-10-03] MEDS: traZODone HCL 50 MG TABLET PO (20:19)
[2021-10-04] VITALS: PULSE 60
[2021-10-04 03:25] VITALS: O2SAT 98
[2021-10-04 04:00] VITALS: PULSE 57
[2021-10-04 06:00] VITALS: BP 114/49; PULSE 70; RESP 16; TEMP 36.3; O2SAT 99
[2021-10-04 06:25] LABS: Anion Gap 3 mmol/L (8-16); Blood Urea Nitrogen 13 mg/dL (7-17); Calcium 8.9 mg/dL (8.4-10.2); Carbon Dioxide 26 mmol/L (22-30); Chloride 109 mmol/L (98-107); Estimated CRCL calculation 50 ml/min; Estimated Glomerular Filt Rate > 60; Glucose 93 mg/dL (65-110); Potassium 4.1 mmol/L (3.4-5.0); Sodium 138 mmol/L (137-145)
[2021-10-04] MEDS: polyethylene glycoL 3350 17 GM POWD.PACK PO (08:23)
[2021-10-04] MEDS: MECLIZINE HCL 6.25 MG TABLET PO ×2 (08:23→13:58)
[2021-10-04] MEDS: CHOLECALCIFEROL 1,000 UNITS TABLET 2000 UNITS PO (08:23)
[2021-10-04] MEDS: ASPIRIN 81 MG ENTERIC TABLET PO (08:23)
[2021-10-04 08:56] VITALS: BP 123/62
[2021-10-04 08:57] VITALS: BP 128/63; BP 130/69
--- NOTE | 2021-10-04 11:06 | PM.CNCAR ---
Assessment and Plan Assessment and plan (1) Vasovagal syncope: Code(s): R55 - Syncope and collapse Status: Acute Assessment and Plan: Most likely secondary to relative intravascular volume depletion associated position change in micturition after having illness and decreased oral intake 48 hours prior to event. No evidence of bradyarrhythmia as explanation but cannot be entirely excluded. Although brief SVT noted on telemetry highly unlikely cause of vasovagal syncope particularly she did not note rapid palpitations in association with this episode. She is not orthostatic, remains asymptomatic at this time. His echocardiogram with preserved LV function no significant valve pathology. Push oral intake, hydration, rise slowly from seated position. Outpatient 30 day property assessment monitor. Continue current medical therapy for the time being. Carotid Dopplers less than 50% stenosis bilaterally. Further management per primary service. Disposition per hospitalist. Avoid dehydration, trazodone if possible. Trazodone may have contributed to this episode as she woke up to urinate early in the morning when this event occurred. (2) PSVT (paroxysmal supraventricular tachycardia): Code(s): I47.1 - Supraventricular tachycardia Status: Acute Assessment and Plan: Brief SVT episode noted on telemetry cannot exclude possible transient atrial flutter although not clearly identified. We discussed at length cardioembolic stroke risk associated with atrial fibrillation and/or atrial flutter if identified. She does not have a prior diagnosis and is not clearly seen that she has atrial flutter at present. Thirty day property assessment monitor for further clarification in this regard. We discussed potential recommendation for systemic anticoagulation, radiographic evidence of prior stroke. Continue propranolol for now. Alteration in beta-enzo therapy may be warranted depending upon findings. All questions answered to the patient and her 's satisfaction who was at bedside. They agreed with plan of care. Further recommendations to follow. Stable for discharge home today. She reports palpitations in the past and rapid sustained rhythm change but typically short lived. No associated near-syncope or syncope. I would be very cautious initiating systemic anticoagulation at this juncture anyway given recent syncopal episode. She will follow-up with me in the office in 6 weeks to discuss results of her property assessment monitor. She will call with any questions or concerns. (3) Palpitations: Code(s): R00.2 - Palpitations Status: Acute Assessment and Plan: As above. Continue propranolol for now. (4) History of CVA (cerebrovascular accident): Code(s): Z86.73 - Personal history of transient ischemic attack (TIA), and cerebral infarction without residual deficits Status: Acute Assessment and Plan: No prior known history of stroke but MRI and CT both confirm prior infarction without acute event. As such aspirin 81 mg daily and initiation of statin therapy advised for stroke risk reduction. Explained the risk and benefit in this regard. They verbalized understanding and agreed. Monitor for bleeding. History of Present Illness History of Present Illness Consult date/time: Date of service:10/04/21 11:06 Cardiology consultation at the request of Neelima De Luna of the [facility] service for opinion regarding recent syncope and SVT. Requesting physician: Neelima De Luna PA-C Consult reason: Other (syncope, SVT) Reason For Visit: syncope Narrative: Patient is a very pleasant 76-year-old female with a past medical history significant for vertigo and palpitations who presented to the emergency department with complaints of lightheadedness after suffering a brief syncopal episode at home Friday prior to admission. Patient states she awoke from sleep approximately 630 in the morning to urinate.
--- NOTE | 2021-10-04 11:43 | PC.NURSE ---
On 10/04/21, the student, [Lorne Allred], provided care and completed [facility] documentation on this patient. I have reviewed the student's documentation and agree with the findings.
--- NOTE | 2021-10-04 12:12 | PM.DS ---
DS: Admitting Diagnosis Discharge Date 10/04/21 Admitting Diagnosis Syncope DS: Discharge Diagnosis Discharge Diagnosis (1) Syncope: Qualifiers: Syncope type: unspecified Qualified Code(s): R55 - Syncope and collapse Code(s): R55 - Syncope and collapse Status: Acute Assessment and Plan: The patient is a 76 year old woman with a history of palpations on Propranolol, who presented with a syncope episode. Patienthad an episode of syncope on Friday morning around morning. She was getting up to the bathroom and felt nauseous, she was then standing up in her bathroom and call for her by the time he came to the bathroom she was beginning to pass out and slowly, sat herself down but she still fell backwards striking the back of her head on her tile floor. She only lost consciousness for less than a minute was back to her baseline. At that time she decided not to come to the emergency room for further evaluation. But she continued to have some lightheadedness with getting up and continued to have pain to the back of her head so she decided to come in on Friday10/02/2021 for further evaluation workup. Initial labs showed elevated blood pressure 179/82, heart rate at 71 beats per minute, afebrile, 98% on room air. Patient had leukopenia at 3600, normal H&H, normal platelet count, normal coag panel, negative D-dimer. Normal renal function other than slightly elevated BUN at 19. Normal electrolytes, normal LFTs. Normal lactic acid. Normal LDH, CRP. TSH normal, lipase normal. Normal urinalysis. CT head showed Cerebral atherosclerosis and chronic small vessel ischemic changes of the cerebral white matter. Small chronic lacunar infarct in the posterior right parietal white matter. No acute intracranial finding or skull fracture. Cervical Spine showed Mild cervical spondylosis without acute findings. CXR showed No acute cardiopulmonary disease. She was admitted the hospital for further evaluation workup due to syncopal episode. MRI was completed showing Small old infarct in the right parietal lobe deep white matter. Carotid US showed <50% stenosis in the right internal carotid artery. <50% stenosis in the left internal carotid artery. Echocardiogram showed Left ventricular chamber dimension is normal. Left ventricular systolic function is normal, estimated at 60-65%. The left ventricular diastolic function is grade II diastolic dysfunction. E/e' 9 is minimally elevated. She was placed on telemetry which showed a normal sinus rhythm with a heart rate of 69 beats per minute, with multiple episodes of sinus tachycardia verses atrial flutter with heart rate is high as 148 beats per minute. The patient has been taking her propranolol at night for rate control and palpitations and has received it here in the hospital. Cardiology was consulted for further evaluation. Dr. Tracy evaluated the patient and would like further work up outpatient with a 30 day heart monitor. Also, recommends Aspirin 81 mg and Atorvastatin 10 mg daily. Follow up instructions given. Return to ER warnings given. Explained to the patient and her who understand and agree with the plan. (2) Tachycardia: Code(s): R00.0 - Tachycardia, unspecified Status: Acute Assessment and Plan: See above (3) Palpitations: Code(s): R00.2 - Palpitations Status: Acute Assessment and Plan: Patient is on propanolol. Telemetry shows some tachycardia episodes so Cardiology was consulted and wants further evaluation with outpatient 30 day heart monitor. (4) Abdominal mass: Code(s): R19.00 - Intra-abdominal and pelvic swelling, mass and lump, unspecified site Status: Acute Assessment and Plan: The patient had been ordered an ultrasound outpatient but her t
== END 2021-10-04 14:13 | disposition home or self-care (01) ==
LOC: ANHED 10:55 → ANH2MED 12:41
PROVIDERS: Nurse Practitioner; Physician Assistant; Admitting Provider Family Medicine; Emergency Provider Emergency Medicine; PCP Internal Medicine; Visit Provider Internal Medicine
DX: R55 Syncope and collapse (principal); I47.1 Supraventricular tachycardia; R00.2 Palpitations; R19.00 Intra-abdominal and pelvic swelling, mass and lump, unspecified site; D17.1 Benign lipomatous neoplasm of skin and subcutaneous tissue of trunk; I65.23 Occlusion and stenosis of bilateral carotid arteries; F41.1 Generalized anxiety disorder; Z86.73 Personal history of transient ischemic attack (TIA), and cerebral infarction without residual deficits
CPT/HCPCS: 36415; 70450; 70553; 71045; 72125; 76705; 80048; 80053; 82728; 83605; 83615; 83690; 83735; 84443; 84484; 85025; 85380; 85610; 85730; 86140; 93005; 93306; 93880; 96360; 97162; 97165; 99285; A9270; A9577; G0378; J7120

== ENCOUNTER 2021-10-30 09:07 | Outpatient (CLI) | payer MEDICARE, BC, SELFPAY ==
--- NOTE | ~2021-10-30 | US_ITS ---
EXAMINATION: US biopsy st pelvis DATE: 10/30/2021 10:08 INDICATION: Right flank subcutaneous mass TECHNIQUE: The procedure including the risks and benefits was discussed with the patient. Risks discu ssed included bleeding and infection. The patient understood the risks and agreed to proceed. The sk in overlying the region of concern at the right flank was prepped and draped in usual sterile fashion . Anesthetic was administered with 1% lidocaine subcutaneously. An 18 gauge core biopsy needle was advanced under continuous ultrasound observation to the lesion of interest. 3 core biopsy specimens were obtained. The needle was removed and the entry site was cleaned and dressed. Post procedure ul trasound demonstrated no hemorrhage. FINDINGS: Ultrasound images demonstrate a 7.3 x 4.2 x 1.8 cm flattened ovoid mass in the subcutaneous tissues at the right flank with appearance consistent with advanced disc most likely to represent a lipoma. Subsequent images demonstrate patchy needle advanced into the mass. The biopsy samples were p laced in formalin consistent with fatty tissue and again favoring lipoma. IMPRESSION: 1. Successful Ultrasound-guided biopsy of a 7.3 x 4.2 x 1.8 cm subcutaneous mass with imaging appeara nce and low density biopsy samples from favoring lipoma. Reviewed, dictated and finalized at location A. IMPRESSION: 1. Successful Ultrasound-guided biopsy of a 7.3 x 4.2 x 1.8 cm subcutaneous mas s with imaging appearance and low density biopsy samples from favoring lipoma.
== END 2021-10-30 09:08 | disposition home or self-care (01) ==
LOC: ANHIMG 09:08
PROVIDERS: PCP Internal Medicine; Visit Provider Internal Medicine
DX: R19.00 Intra-abdominal and pelvic swelling, mass and lump, unspecified site (principal)
CPT/HCPCS: 27040; 76942; 88305

== ENCOUNTER → 2022-06-13 12:35 | Outpatient (CLI) | payer MEDICARE, BC, SELFPAY ==
--- NOTE | ~2022-06-13 | MM_ITS ---
EXAMINATION: MM screening [facility] BI w anthony HISTORY: Screening mammogram TECHNIQUE: Craniocaudal and mediolateral oblique 3-D tomosynthesis images were obtained and synthetic 2-D images were generated. CAD analysis was submitted and interpreted. COMPARISON: 04/30/2021, 04/28/2020, 04/09/2019 BREAST PARENCHYMAL COMPOSITION: The breasts are heterogeneously dense, which may obscure small masses . FINDINGS: No suspicious mass, calcification, or architectural distortion are identified in either garo ast to suggest malignancy. There has been no suspicious interval change. IMPRESSION: 1. No mammographic evidence of malignancy. 2. Recommend routine screening mammography in one year. BI-RADS Category 1: Negative Reviewed, dictated and finalized at location A.
== END ==
PROVIDERS: PCP Internal Medicine; Visit Provider Obstetrics & Gynecology
DX: Z12.31 Encounter for screening mammogram for malignant neoplasm of breast (principal)
CPT/HCPCS: 77063; 77067

== ENCOUNTER 2022-06-19 09:40 | Emergency (ER) | payer MEDICARE, BC, SELFPAY ==
--- NOTE | ~2022-06-19 | XR_ITS ---
XR chest 2V DATE: 06/19/2022 10:35 INDICATION: Cough, congestion, dizziness. Weakness. TECHNIQUE: AP and lateral views COMPARISON: 10/02/2021 PA chest FINDINGS: Normal heart size. No hilar or mediastinal enlargement. No pulmonary infiltrate or consol idation, pulmonary vascular congestion or pleural effusion or pneumothorax. IMPRESSION: No active cardiopulmonary disease Reviewed, dictated and finalized at location A.
[2022-06-19 09:54] VITALS: BP 116/68; PULSE 92; RESP 20; TEMP 36.9; O2SAT 98
--- NOTE | 2022-06-19 10:00 | ECG_ITS ---
Measurements Intervals [place] Rate: 79 P: 66 MA: 152 QRS: 25 QRSD: 104 T: 68 QT: 367 QTc: 422 Interpretive Statements SINUS RHYTHM POSSIBLE LEFT ATRIAL ENLARGEMENT INCOMPLETE RIGHT BUNDLE BRANCH BLOCK BORDERLINE T WAVE ABNORMALITY- ANTERIOR LEADS BASELINE ARTIFACT- I, II, III, AVR, AVL, V1 BORDERLINE ECG COMPARED TO ECG 10/02/2021 16:44:24 SINUS RHYTHM NOW PRESENT Electronically Signed On 06-19-2022 10:58:14 CDT by Herb Lozano D.O.
--- NOTE | 2022-06-19 10:02 | ED.GENADULT ---
HPI - General Adult General Chief complaint: Weakness Stated complaint: weakness, flu A+ Time Seen by Provider: 06/19/22 09:49 History of Present Illness HPI narrative: 77-year-old female with history of a flutter here for evaluation of weakness over the past week. Patient was diagnosed with flu last week and states that she has felt miserable since with generalized body aches, weakness, nausea and several episodes of diarrhea. Patient has not attempted any medication for her symptoms. States that she has not had an appetite, but has been drinking lots of water. No fevers at home, chest pain, shortness of breath, abdominal pain, leg swelling, rashes. Related Data Home Medications Medication Instructions Recorded Confirmed polyethylene glycol 3350 17 17 gm PO DAILY 09/14/19 04/04/22 gram/dose oral powder (Miralax) cholecalciferol (vitamin D3) 50 50 mcg PO DAILY 09/26/21 04/04/22 mcg (2,000 unit) tablet Allergies Allergy/AdvReac Type Severity Reaction Status Date / Time No Known Allergies Allergy Verified 06/19/22 10:00 Review of Systems Review of Systems: Gen.: Reports weakness and body aches. Denies fevers or chills Eyes: Denies eye pain or visual change ENT: Reports congestion and vocal hoarseness Respiratory: Denies shortness of breath or cough CV: Denies chest pain or palpitations GI: Denies abdominal pain nausea, emesis or diarrhea denies burning, urgency, frequency or hematuria Musculoskeletal: Denies back pain or muscle pain Neuro: Denies numbness, tingling, weakness or focal weakness Skin: Denies rash Except as documented, all other systems reviewed and negative REPLACED BY [facility] Past Medical History Medical History Anxiety, generalized Constipation Cyst of pancreas Degenerative joint disease of knee Dizziness Hx of colonic polyp Knee joint effusion Left knee DJD Left knee pain Lipoma of abdominal wall Lipoma of right thigh Liver hemangioma Nonspecific abnormality on liver isotope scan Other irritable bowel syndrome Pain of left calf Palpitations Postmenopausal Screening for breast cancer Stress incontinence (female) (male) Surgical History Surgical History H/O hysterectomy for benign disease History of appendectomy History of bladder suspension procedure Hx laparoscopic cholecystectomy Family History Family History Sibling Hypertension Mother Patient's mother is Acute myocardial infarction Father Patient's father is Acute myocardial infarction Other Diabetes mellitus Family history of arthritis Heart disease Social History Social History Social History: The patient lives with her and her daughter to grand children. Her is the durable power manual plate filler for healthcare. Her 2 children are adopted. 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 She is the lifelong nonsmoker. She does not use any marijuana alcohol or illicit drugs. Code status full code Smoking status: Never smoker Alcohol intake: former Alcohol use details: social Substance use: never Substance use type: does not use Other substance usage details: occasional alcohol Gender identity (if verbalized by the patient): Female Spiritual care concerns: No Exam Narrative: APPEARANCE: Vocal hoarseness noted. Well appearing, no pain in distress, well-nourished. Head: Normocephalic and atraumatic. EYES: PERRLA/EOMI, conjunctivae clear NOSE: No nasal drainage EARS: External ear normal in appearance THROAT: Uvula is midline. Oropharynx is clear. Mucous membranes are dry. NECK: Supple. No adenopathy, no masses. RESPIRATORY: Airway patent, respirations nonlabored. Clear to auscultation bilaterally, no rales,
[2022-06-19 10:12] VITALS: PULSE 79
[2022-06-19 10:24] LABS: Basophils Percent Auto 0.2 % (0.2-1.2); Hematocrit 36.3 % (37.0-47.0); Hemoglobin 12.3 g/dL (12.0-15.0); Immature Granulocyte Absolute 0.02 K/mm3 (0.00-0.031); Immature Granulocyte Percent A 0.3 % (0-0.5); Lymphocytes Absolute Auto 0.82 K/mm3 (0.9-3.2); Lymphocytes Percent Auto 12.6 % (18.3-44.2); Mean Corpuscular HGB Conc 33.9 g/dl (32-36); Mean Corpuscular Hemoglobin 31.9 pg (26-34); Mean Corpuscular Volume 94.3 fl (80-100); Mean Platelet Volume 8.8 fl (7.4-10.4); Monocytes Absolute Auto 0.5 K/mm3 (0.1-0.6); Monocytes Percent Auto 7.5 % (2.6-8.5); Neutrophils Absolute Auto 5.2 K/mm3 (1.3-6.7); Neutrophils Percent Auto 79.4 % (45.5-73.1); Platelet Count Result 161 k/mm3 (150-375); Red Blood Count 3.85 M/mm3 (4.2-5.4); Red Cell Distribution Width 13.2 % (11.5-14.5); White Blood Count 6.5 K/mm3 (4.5-10.0)
[2022-06-19 10:28] LABS: Alanine Aminotransferase 37 U/L (6-35); Albumin Level 3.9 g/dL (3.5-5.1); Alkaline Phosphatase 63 U/L (38-126); Anion Gap 12 mmol/L (8-16); Aspartate Amino Transferase 43 U/L (14-36); Bilirubin,Total 0.5 mg/dL (0.2-1.3); Blood Urea Nitrogen 10 mg/dL (7-17); Carbon Dioxide 21 mmol/L (22-30); Chloride 97 mmol/L (98-107); Estimated CRCL calculation 52 ml/min; Estimated Glomerular Filt Rate > 60; Glucose 109 mg/dL (65-110); Lipase 135 U/L (23-300); Potassium 3.3 mmol/L (3.4-5.0); Sodium 130 mmol/L (137-145)
[2022-06-19 10:40] LABS: Troponin I 0.032 ng/mL (0.000-0.034)
[2022-06-19] MEDS: SODIUM CHLORIDE 0.9% IV 1,000 ML 999 ML IV CONT (10:46)
[2022-06-19] MEDS: ONDANSETRON INJ 4 MG/2 ML VIAL IV PUSH (10:46)
[2022-06-19] MEDS: ACETAMINOPHEN 325 MG TABLET 650 MG PO (10:47)
[2022-06-19 13:21] LABS: Troponin I 0.035 ng/mL (0.000-0.034)
[2022-06-19 14:05] VITALS: BP 120/68; PULSE 73; RESP 16; O2SAT 97
[2022-06-19 14:34] LABS: Influenza A QL RT-PCR Positive (Negative); Influenza B QL RT-PCR Negative (Negative); SARS-CoV-2 RNA PCR Negative
== END 2022-06-19 14:06 | disposition home or self-care (01) ==
PROVIDERS: Physician Assistant; Emergency Provider Emergency Medicine; PCP Internal Medicine
DX: J10.1 Influenza due to other identified influenza virus with other respiratory manifestations (principal); Z20.822 Contact with and (suspected) exposure to COVID-19; M17.12 Unilateral primary osteoarthritis, left knee; K58.9 Irritable bowel syndrome, unspecified; N39.3 Stress incontinence (female) (male); Z90.710 Acquired absence of both cervix and uterus; Z86.010 Personal history of colon polyps
CPT/HCPCS: 36415; 71046; 80053; 83690; 84484; 85025; 87502; 93005; 96361; 96374; 99284; A9270; J2405; J7030; U0003; U0005

== ENCOUNTER 2022-06-23 16:08 | Observation (INO) | payer MEDICARE, BC, SELFPAY ==
--- NOTE | ~2022-06-23 | XR_ITS ---
EXAMINATION: XR chest 1V portable Exam Date/Time: 06/23/2022 19:50 GAMING FLOOR SUPERVISOR HISTORY: wheezing. COUGH, CONGESTION, FEVER X 1 WK Comparison: 06/19/2022. RESULT: Lines, tubes, and devices: None. Lungs and pleura: Senescent change. Streaky left medial basal opacities likely representing atelecta sis. Cardiomediastinal silhouette: Stable. Other: No acute osseous or upper abdominal finding. IMPRESSION: No acute cardiopulmonary process. Reviewed, dictated and finalized at location K. NG FLOOR SUPERVISOR
[2022-06-23 16:11] VITALS: BP 138/69; PULSE 106; RESP 18; TEMP 38.5; O2SAT 94
[2022-06-23 16:25] LABS: Basophils Percent Auto 0.2 % (0.2-1.2); Eosinophils Percent Auto 0.2 % (0-4.4); Hematocrit 35.7 % (37.0-47.0); Hemoglobin 12.1 g/dL (12.0-15.0); Immature Granulocyte Absolute 0.08 K/mm3 (0.00-0.031); Immature Granulocyte Percent A 0.7 % (0-0.5); Lymphocytes Absolute Auto 1.02 K/mm3 (0.9-3.2); Lymphocytes Percent Auto 8.5 % (18.3-44.2); Mean Corpuscular HGB Conc 33.9 g/dl (32-36); Mean Corpuscular Hemoglobin 32.2 pg (26-34); Mean Corpuscular Volume 94.9 fl (80-100); Monocytes Absolute Auto 0.7 K/mm3 (0.1-0.6); Monocytes Percent Auto 5.4 % (2.6-8.5); Neutrophils Absolute Auto 10.2 K/mm3 (1.3-6.7); Platelet Count Result 299 k/mm3 (150-375); Red Blood Count 3.76 M/mm3 (4.2-5.4); Red Cell Distribution Width 13.2 % (11.5-14.5)
[2022-06-23 16:34] LABS: Alanine Aminotransferase 30 U/L (6-35); Albumin Level 3.9 g/dL (3.5-5.1); Alkaline Phosphatase 76 U/L (38-126); Anion Gap 10 mmol/L (8-16); Aspartate Amino Transferase 33 U/L (14-36); Bilirubin,Total 0.7 mg/dL (0.2-1.3); Blood Urea Nitrogen 5 mg/dL (7-17); Calcium 8.3 mg/dL (8.4-10.2); Carbon Dioxide 26 mmol/L (22-30); Chloride 100 mmol/L (98-107); Estimated CRCL calculation 67 ml/min; Estimated Glomerular Filt Rate > 60; Glucose 124 mg/dL (65-110); Lipase 183 U/L (23-300); Potassium 3.5 mmol/L (3.4-5.0); Sodium 136 mmol/L (137-145)
[2022-06-23 17:01] LABS: Influenza A QL RT-PCR Negative (Negative); Influenza B QL RT-PCR Negative (Negative); SARS-CoV-2 RNA PCR Negative
[2022-06-23 18:15] VITALS: BP 136/69; PULSE 92; RESP 17; TEMP 38.1; O2SAT 95
[2022-06-23 20:08] LABS: Bacteria Urine Trace /hpf; Mucus Urine Rare /lpf; Squamous Epithelial Cell Urine Rare /hpf (Few); WBC Urine 0-3 /hpf
[2022-06-23 20:11] LABS: Appearance Urine Clear (Clear); Bilirubin Urine 1+ (Negative); Blood Urine 1+ (Negative); Color Urine Yellow (Yellow); Glucose Urine UA Negative (Negative); Ketones Urine 2+ mg/dL (Negative); Leukocyte Esterase Ur Trace LEU/UL (Negative); Nitrate Urine Negative (Negative); Protein Urine Negative (Negative); Specific Grav Ur 1.015 (1.001-1.035)
[2022-06-23] MEDS: ALBUTEROL SULFATE NEB 2.5 MG/3 ML INH 5 MG INHALATION (20:16)
[2022-06-23] MEDS: IPRATROPIUM BR 0.02% INH SOLN 0.5 MG/2.5 ML VIAL INHALATION (20:16)
[2022-06-23] MEDS: SODIUM CHLORIDE 0.9% IV 1,000 ML 999 ML IV CONT (20:18)
[2022-06-23 20:19] VITALS: PULSE 80; RESP 17
--- NOTE | 2022-06-23 20:32 | ED.GENADULT ---
HPI - General Adult General Chief complaint: Abdominal Pain Stated complaint: flu +, abd pain Time Seen by Provider: 06/23/22 19:14 History of Present Illness HPI narrative: this is a 77-year-old female presenting to ED with flu-like symptoms x5 days. Patient was diagnosed with flu on 06/19. Since then she has been feeling weak, had decreased oral intake, headache and myalgias. She did have 1 episode of vomiting 1 week ago. She has not had a bowel movement several days. She has had significantly decreased p.o. intake. The patient lives at home with her who was recently been admitted to the ICU for influenza pneumonia. The patient denies chest pain, difficulty breathing or abdominal pain. The patient son flew in from [place] due to their declining health, but the patient does not have strong support at home at this time Related Data Home Medications Medication Instructions Recorded Confirmed polyethylene glycol 3350 17 17 gm PO DAILY 09/14/19 04/04/22 gram/dose oral powder (Miralax) cholecalciferol (vitamin D3) 50 50 mcg PO DAILY 09/26/21 04/04/22 mcg (2,000 unit) tablet Allergies Allergy/AdvReac Type Severity Reaction Status Date / Time No Known Allergies Allergy Verified 06/19/22 10:00 Review of Systems Review of Systems: CONSTITUTIONAL: Denies night sweats. EYES: No eye pain ENT: Denies rhinorrhea CARDIOVASCULAR: Denies palpitations RESPIRATORY: Denies hemoptysis GASTROINTESTINAL: Denies hematemesis GENITOURINARY: Denies hematuria. SKIN: Denies rash MUSCULOSKELETAL: admits myalgias NEUROLOGIC: Denies weakness. PSYCHIATRIC: Denies delusions PMFSH Past Medical History Medical History Anxiety, generalized Constipation Cyst of pancreas Degenerative joint disease of knee Dizziness Hx of colonic polyp Knee joint effusion Left knee DJD Left knee pain Lipoma of abdominal wall Lipoma of right thigh Liver hemangioma Nonspecific abnormality on liver isotope scan Other irritable bowel syndrome Pain of left calf Palpitations Postmenopausal Screening for breast cancer Stress incontinence (female) (male) Surgical History Surgical History H/O hysterectomy for benign disease History of appendectomy History of bladder suspension procedure Hx laparoscopic cholecystectomy Family History Family History Sibling Hypertension Mother Patient's mother is Acute myocardial infarction Father Patient's father is Acute myocardial infarction Other Diabetes mellitus Family history of arthritis Heart disease Social History Social History Social History: The patient lives with her and her daughter to grand children. Her is the durable power traffic law attorney for healthcare. Her 2 children are adopted. 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 She is the lifelong nonsmoker. She does not use any marijuana alcohol or illicit drugs. Code status full code Smoking status: Never smoker Alcohol intake: former Alcohol use details: social Substance use: never Substance use type: does not use Other substance usage details: occasional alcohol Gender identity (if verbalized by the patient): Female Spiritual care concerns: No Exam Narrative: APPEARANCE: patient is lying supine in bed. She appears weak and frail Head: atraumatic. EYES: EOMI, NOSE: Atraumatic NECK: Trachea midline RESPIRATORY: the patient has scattered expiratory wheezing, no increased work of breathing, not tachypneic CARDIOVASCULAR: tachycardic ABDOMINAL: woman is soft, nontender with no guarding or rebound MUSCULOSKELETAl: No obvious deformities NEURO: Alert. Moving 4/4 extremities SKIN:: Warm, dry. Normal color
[2022-06-23 20:34] LABS: Add Urine Microscopic? YES
--- NOTE | 2022-06-23 20:36 | ECG_ITS ---
Measurements Intervals [place] Rate: 74 P: 59 LA: 167 QRS: -14 QRSD: 100 T: 33 QT: 372 QTc: 413 Interpretive Statements SINUS RHYTHM NORMAL ECG COMPARED TO ECG 06/19/2022 10:12:57 NO SIGNIFICANT CHANGES Electronically Signed On 06-24-2022 6:27:09 [employer] YOU[employer] SUPERVISOR by Herb Lozano D.O.
--- NOTE | 2022-06-23 21:46 | PM.IMHP ---
H&P: HPI History of Present Illness Date/Time: 06/23/22 21:46 Chief Complaint: generalized weakness Narrative: This is a 77-year-old female with past medical history significant for dyslipidemia atrial fibrillation rate controlled and anticoagulated. patient presented a 2nd time to the emergency room due to generalized weakness, poor appetite, body aches and pains, she tested positive for influenza on her 1st trip to the emergency room. She has had progressive decline after this was brought by her son to the emergency room. patient has not been able to care for herself and has been laying in bed most of the day not able to prepare meals not able to get out of bed. Preliminary workup has been essentially nonrevealing. A chest x-ray was reported as: IMPRESSION: No acute cardiopulmonary process. Review of Systems Review of Systems: generalized weakness, poor appetite, unable to get out of bed. Constitutional: Constitutional: Denies chills, Denies fever(s), Reports lethargy, Reports malaise, Reports poor appetite and Reports weakness Eyes: Eyes: Denies change in vision ENT: Denies dysphagia, Denies vertigo, Denies dizziness and Denies odynophagia Cardiovascular: Cardiovascular: Denies chest pain, Denies leg edema and Denies dyspnea Respiratory: Respiratory: Denies chest congestion, Denies cough and Denies excessive phlegm production Gastrointestinal: Gastrointestinal: Denies abdominal pain, Denies dyspepsia, Denies heartburn, Denies nausea and Denies vomiting Genitourinary: Genitourinary: Denies dysuria Musculoskeletal: Musculoskeletal: Reports muscle weakness Integumentary/Breasts: Skin/Breast: Denies rash Neurologic: Denies vertigo, Denies dizziness, Denies focal weakness and Denies Sensory deficit (Neuro) Psychiatric: Psychiatric: Reports no additional psychiatric complaints and Reports as per HPI Endocrine: Endocrine: Denies cold intolerance, Denies flushing, Denies heat intolerance, Denies polyphagia, Denies polydipsia and Denies palpitations Hematologic/Lymphatic: Hematologic/Lymphatic: Reports no additional hematologic/lymphatic complaints and Reports as per HPI Allergic/Immunologic: Allergic/Immunologic: Reports no additional allergic/immunologic complaints and Reports as per HPI PMFSH Past Medical History Medical History Anxiety, generalized Constipation Cyst of pancreas Degenerative joint disease of knee Dizziness Hx of colonic polyp Knee joint effusion Left knee DJD Left knee pain Lipoma of abdominal wall Lipoma of right thigh Liver hemangioma Nonspecific abnormality on liver isotope scan Other irritable bowel syndrome Pain of left calf Palpitations Postmenopausal Screening for breast cancer Stress incontinence (female) (male) Surgical History Surgical History H/O hysterectomy for benign disease History of appendectomy History of bladder suspension procedure Hx laparoscopic cholecystectomy Family History Family History Sibling Hypertension Mother Patient's mother is Acute myocardial infarction Father Patient's father is Acute myocardial infarction Other Diabetes mellitus Family history of arthritis Heart disease Social History Social History Social History: The patient lives with her and her daughter to grand children. Her is the durable power claim attorney for healthcare. Her 2 children are adopted. 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 She is the lifelong nonsmoker. She does not use any marijuana alcohol or illicit drugs. Code status full code Smoking status: Never smoker Second hand tobacco smoke exposure: No Alcohol intake: never Alcohol use details: social
[2022-06-23] MEDS: LACTATED RINGERS 1,000 ML 75 ML IV CONT (21:56)
[2022-06-24] VITALS (7 sets, daily range): BP systolic 119–137; BP diastolic 66–72; PULSE 64–84; RESP 18–22; TEMP 36.6–37.2; O2SAT 97–98; BMI 21.6; BMI 21.9
[2022-06-24] MEDS: METOPROLOL SUCCINATE EXT REL 25 MG TABCR PO (09:13)
[2022-06-24] MEDS: RIVAROXABAN 20 MG TABLET PO (09:13)
[2022-06-24] MEDS: polyethylene glycoL 3350 17 GM POWD.PACK PO (09:13)
[2022-06-24] MEDS: CHOLECALCIFEROL 1,000 UNITS TABLET 2000 UNITS PO (09:13)
[2022-06-24] MEDS: LACTATED RINGERS 1,000 ML 75 ML IV CONT (10:17)
--- NOTE | 2022-06-24 15:15 | PM.DS ---
DS: Admitting Diagnosis Discharge Date 06/24/2022 Admitting Diagnosis generalized weakness DS: Summary Hospital Course Hospital Course: This is a 77-year-old female with past medical history significant for dyslipidemia atrial fibrillation rate controlled and anticoagulated. patient presented a 2nd time to the emergency room due to generalized weakness, poor appetite, body aches and pains, she tested positive for influenza on her 1st trip to the emergency room.? She has had progressive decline after this? was brought by her son to the emergency room. patient has not been able to care for herself and has been laying in bed most of the day not able to prepare meals not able to get out of bed.? Preliminary workup has been essentially nonrevealing. ? A chest x-ray was reported as:No acute cardiopulmonary process. PT and OT were consulted. They saw the patient and further evaluation patient is okay to be discharged home. patient feels like she is at her baseline. she has been discharged home Time Spent with Patient Time attestation: Total time spent providing and/or coordinating discharge services: Exam Const: General: comfortable, no acute distress, well developed, alert, awake, ill appearing acutely and average body habitus Nutritional Appearance: average body habitus Orientation/consciousness: patient oriented x3 HENMT: Head: normal to inspection, normocephalic and atraumatic Ears: hearing grossly normal bilaterally Face/Nose/Sinus: normal facial exam Face and sinus: normal facial exam Eyes: General: appearance normal, both eyes and all related structures Pupils: Equal, round and reactive pupils present EOM: EOMs intact bilaterally Neck: Neck: full ROM, no lymphadenopathy and no JVD Thyroid: thyroid normal Lymphatic: no lymphadenopathy noted Resp: Effort & Inspection: normal respiratory effort and able to speak in complete sentences Auscultation: clear to auscultation bilaterally Cardio: Jugular venous distension: no JVD Rate: regular rate Rhythm: regular rhythm Heart sounds: S1 normal heart sound present and S2 normal heart sound present GI: GI Palp: Yes Soft to palpation and Yes No hepatosplenomegaly present : General: Yes deferred Skin: Rashes: no rashes Wounds: no wounds Neuro: General: patient oriented x3 and CN's II-XI intact bilaterally Cranial nerves: Yes CN's II-XII intact bilaterally and Yes Equal, round and reactive pupils present Cognition (Neuro): normal cognition Speech: normal speech Gait exam (Neuro): Unable to assess gait Motor exam (neuro): 5/5 motor strength present throughout Extrem: General: normal to inspection, full ROM, no joint enlargement and no pedal edema DS: Data Data Completed and Pending Labs on day of discharge: Labs from last 24 hours 06/23/22 06/23/22 06/23/22 19:54 16:17 16:17 WBC RBC Hgb Hct MCV MCH MCHC RDW Plt Count MPV Immature Gran % (Auto) Neut % (Auto) Lymph % (Auto) Hart % (Auto) Eos % (Auto) Baso % (Auto) Lymph # (Auto) Hart # (Auto) Eos # (Auto) Baso # (Auto) Abs Immat Gran (auto) Absolute Neuts (auto) Absolute Nucleated RBC Nucleated RBC % Sodium 136 L Potassium 3.5 Chloride 100 Carbon Dioxide 26 Anion Gap 10 BUN 5 L D Creatinine 0.60 L Estim Creat Clear Calc 67 Estimated GFR > 60 Glucose 124 H Calcium 8.3 L Total Bilirubin 0.7 AST 33 ALT 30 Alkaline Phosphatase 76 Total Protein 7.0 Albumin 3.9 Lipase 183 Urine Color Yellow Urine Appearance Clear Urine pH 7.0 Ur Specific [place] 1.015 Urine Protein Negative Urine Glucose (UA) Negative Urine Ketones 2+ H Ur Blood (Man) 1+ H Urine Nitrate Negative Urine Bilirubin 1+ H Urine Urobilinogen 1.0 Leukocyte Esterase Rfl Trace H Urine RBC 6-10 H Urine WBC 0-3 Ur Squamous Epith Cells Rare Urine Bacteria Trace U
== END 2022-06-24 15:50 | disposition home or self-care (01) ==
LOC: ANHED 21:25 → ANH3MEDSUR 23:46
PROVIDERS: Emergency Medicine; Admitting Provider Internal Medicine; Emergency Provider Emergency Medicine; PCP Internal Medicine; Visit Provider Hospitalist
DX: R53.1 Weakness (principal); I48.91 Unspecified atrial fibrillation; E78.5 Hyperlipidemia, unspecified; F41.1 Generalized anxiety disorder; K59.00 Constipation, unspecified; R63.8 Other symptoms and signs concerning food and fluid intake; M17.9 Osteoarthritis of knee, unspecified; Z20.822 Contact with and (suspected) exposure to COVID-19; Z20.828 Contact with and (suspected) exposure to other viral communicable diseases; Z79.01 Long term (current) use of anticoagulants; Z79.899 Other long term (current) drug therapy; Z82.49 Family history of ischemic heart disease and other diseases of the circulatory system
CPT/HCPCS: 36415; 71045; 80053; 81001; 83690; 85025; 87502; 93005; 94640; 96361; 96365; 97161; 97165; 99285; A9270; G0378; J0131; J7030; J7120; U0003; U0005

== ENCOUNTER → 2023-05-01 08:45 | Outpatient (CLI) | payer MEDICARE, BC, SELFPAY ==
--- NOTE | ~2023-05-01 | US_ITS ---
EXAMINATION: US soft tissue abdomen DATE: 05/01/2023 09:05 INDICATION: Intra-abdominal and pelvic swelling. Intra-abdominal mass. TECHNIQUE: Multiple grayscale and Doppler ultrasound images of the abdomen were obtained. COMPARISON: CT abdomen and pelvis 04/29/2014 FINDINGS: There is a supraumbilical ventral containing fat. An infraumbilical subcentimeter subcutane ous mass at the midline is likely scarring. IMPRESSION: 1. Supraumbilical ventral hernia containing fat. Reviewed, dictated and finalized at location A.
== END ==
PROVIDERS: PCP Nurse Practitioner Family; Visit Provider Nurse Practitioner Family
DX: R19.00 Intra-abdominal and pelvic swelling, mass and lump, unspecified site (principal); K43.9 Ventral hernia without obstruction or gangrene
CPT/HCPCS: 76705

== ENCOUNTER 2023-05-06 09:22 | Outpatient (CLI) | payer MEDICARE, BC, SELFPAY ==
--- NOTE | ~2023-05-06 | XR_ITS ---
Clinical Indication: Weight loss PA and lateral views of the chest: Comparison: 06/23/2022 Findings: The lungs are clear, without evidence of focal consolidation or pleural effusion. Cardiome diastinal silhouette is within normal limits. Bones and soft tissues are unremarkable. Impression: Normal chest. Reviewed, dictated and finalized at location . Impression: Normal chest.
== END 2023-05-06 09:23 | disposition home or self-care (01) ==
PROVIDERS: PCP Nurse Practitioner Family; Visit Provider Nurse Practitioner Family
DX: R63.4 Abnormal weight loss (principal)
CPT/HCPCS: 71046

== ENCOUNTER → 2023-06-30 07:45 | Outpatient (CLI) | payer MEDICARE, BC, SELFPAY ==
--- NOTE | ~2023-06-30 | MMUS_ITS ---
EXAMINATION: MM diagnostic yaakov BI w anthony, US breast LT limited HISTORY: Palpable lump in the subareolar breast and possible skin retraction in the upper outer quadr ant of the left breast. TECHNIQUE: Craniocaudal, mediolateral, and mediolateral oblique 3-D tomosynthesis images of the breas ts were performed and synthetic 2-D images were generated. CAD analysis was submitted and interpreted . High resolution limited left breast ultrasound was performed. COMPARISON: 06/13/2022, 04/30/2021, 04/28/2020, 04/09/2019 BREAST PARENCHYMAL COMPOSITION: The breasts are heterogeneously dense, which may obscure small masses . FINDINGS: MAMMOGRAPHIC FINDINGS: No suspicious mass, calcification, or architectural distortion are identified in either breast to sug gest malignancy. There has been no suspicious interval change. No mammographic correlate is identifie d for the reported palpable abnormality in the subareolar left breast or for the left breast skin ret raction. ULTRASOUND: There is no evidence of focal abnormal solid or cystic mass in the vicinity of the reported palpable abnormality of concern in the left breast or for the left breast skin retraction. IMPRESSION: 1. No specific mammographic or sonographic correlate is identified for the reported palpable abnormal ity of concern in the left breast or the left breast skin retraction. Further evaluation at this time should be based on clinical assessment. Continued follow-up physical examination is recommended. 2. Recommend routine screening mammography in one year. BI-RADS Category 1: Negative Reviewed, dictated and finalized at location A. E BREAKER IMPRESSION: 1. No specific mammographic or sonographic correlate is identified for the repo rted palpable abnormality of concern in the left breast or the left breast skin retraction. Further evaluation at this time should be based on clinical assess ment. Continued follow-up physical examination is recommended. 2. Recommend routine screening mammography in one year. BI-RADS Category 1: Negative
== END ==
PROVIDERS: PCP Obstetrics & Gynecology; Visit Provider Obstetrics & Gynecology
DX: N63.25 Unspecified lump in the left breast, overlapping quadrants (principal)
CPT/HCPCS: 76642; 77062; 77066; G0279

== ENCOUNTER 2023-11-28 08:50 | Outpatient (CLI) | payer MEDICARE, BC, SELFPAY | END 2023-11-28 08:51 | disposition home or self-care (01) | LOC: ANHAUDIO 08:50 | PROVIDERS: PCP Family Medicine; Visit Provider Nurse Practitioner Family | DX: H90.3 Sensorineural hearing loss, bilateral (principal) | CPT/HCPCS: 92557; 92567 ==

== ENCOUNTER 2024-08-05 09:47 | Outpatient (CLI) | payer MEDICARE, BC, SELFPAY ==
--- NOTE | ~2024-08-05 | MM_ITS ---
EXAMINATION: MM screening yaakov BI w anthony HISTORY: Screening TECHNIQUE: Craniocaudal and mediolateral oblique 3-D tomosynthesis images were obtained and synthetic 2-D images were generated. CAD analysis was submitted and interpreted. COMPARISON: Comparison to multiple prior studies sequentially, with oldest reviewed study dated 04/09. BREAST PARENCHYMAL COMPOSITION: Not dense: There are scattered areas of fibroglandular density. FINDINGS: There is a developing asymmetry in the outer aspect of the right breast on CC view. The lef t breast is stable without evidence for malignancy. IMPRESSION: 1. Developing right breast asymmetry. 2. Additional mammographic views and possible breast ultrasound are recommended. BI-RADS Category 0: Incomplete: Needs additional imaging evaluation. Reviewed, dictated and finalized at location B. MANAGER IMPRESSION: 1. Developing right breast asymmetry. 2. Additional mammographic views and possible breast ultrasound are recommended . BI-RADS Category 0: Incomplete: Needs additional imaging evaluation.
== END 2024-08-05 09:48 | disposition home or self-care (01) ==
LOC: ANHIMG 09:49
PROVIDERS: PCP Family Medicine; Visit Provider Obstetrics & Gynecology
DX: Z12.31 Encounter for screening mammogram for malignant neoplasm of breast (principal); R92.8 Other abnormal and inconclusive findings on diagnostic imaging of breast
CPT/HCPCS: 77063; 77067

== ENCOUNTER 2024-09-23 11:30 | Outpatient (CLI) | payer MEDICARE, BC, SELFPAY ==
--- NOTE | ~2024-09-23 | MMUS_ITS ---
EXAMINATION: MM diagnostic yaakov RT w anthony, US breast RT limited HISTORY: Follow-up breast asymmetry TECHNIQUE: Additional 3-D tomosynthesis images of the right breast were performed and synthetic 2-D i mages were generated. CAD analysis was submitted and interpreted. High resolution Limited right breas t ultrasound was performed. COMPARISON: Comparison to multiple prior studies sequentially, with oldest reviewed study dated 04/09. BREAST PARENCHYMAL COMPOSITION: Not dense: There are scattered areas of fibroglandular density. FINDINGS: MAMMOGRAPHIC FINDINGS: There are no suspicious masses, calcifications or architectural distortion in the right breast to sug gest malignancy. ULTRASOUND: Limited right breast ultrasound: Normal heterogeneous echotexture without focal solid or cystic mass. IMPRESSION: 1. No evidence for malignancy in the right breast. 2. Routine yearly screening mammogram and regular clinical breast examination are recommended. BI-RADS Category 1: Negative Reviewed, dictated and finalized at location B. TY ASSESSOR IMPRESSION: 1. No evidence for malignancy in the right breast. 2. Routine yearly screening mammogram and regular clinical breast examination a re recommended. BI-RADS Category 1: Negative
--- OUTSIDE RECORDS SUMMARY | 2024-09-23 11:50 | XMS_ITS | Referral Summary ---
Author Organization [facility] Address [address] [place] [address] Care Team Providers Care Lumber Trimmer Name Role Phone Carloz Ashley Primary Care Provider [phone] Source Comments [facility],non-owned Affiliates and Associated Physician Practices is amultiple site organization consisting of ambulatory clinics and hospital sitesin [place], [place], [place] and [place]. This disclosure is being madepursuant to the Care Everywhere program and may not contain all information available regarding this patient. Last updated 18.[facility] Allergies No known active allergies Medications * Be aware that medications may not be up to date on this document. Alwaysverify current medications with the patient. Medication Sig Dispensed Refills Start Date End Date Status Docusate Sodium (DSS) 100 MG Take by mouth DAILY. 09/23/2016 Ac tive polyethylene glycol 3350 (MIRALAX) powder Take by mouth. 09/23/2016 Active traZODone (DESYREL) 50 MG tablet Take 50 mg by mouth at bedtime 03/12/2021 Active propranolol (INDERAL) 20 MG tablet propranolol 20 mg tablet TAKE 1 TABLET BY MOUTH 1 TIME AT BEDTIME Active Active Problems Problem Noted Date Diagnosed Date Multiple benign melanocytic nevi of upper and lower extremities and trunk 03/26/2021 Other seborrheic keratosis 03/26/2021 Social History Tobacco Use Types Packs/Day Years Used Date Smoking Tobacco: Never Smokeless Tobacco: Never Alcohol Use Standard Drinks/Week Comments Yes 0 (1 standard drink = 0.6 oz pur e alcohol) Sex and Gender Information Value Date Recorded Sex Assigned at Not on file Gender Identity Not on file Sexual Orientation Not on file Plan of Treatment Not on file Care Teams Lumber Trimmer Relationship Specialty Start Date End Date Carloz Ashley DO [address] [place] [address] PCP - General 02/21/20
--- OUTSIDE RECORDS SUMMARY | 2024-09-23 11:50 | XMS_ITS | Patient Health Summary ---
Author Organization [facility] Address [address] [facility] [place] [address] Care Team Providers Care Hosiery Pairer Name Role Phone Carloz Ashley Primary Care Provider [phone] Note from [facility],non-owned Affiliates and Associated Physician Practices is amultiple site organization consisting of ambulatory clinics and hospital sitesin [place], [place], [place] and [place]. This disclosure is being madepursuant to the Care Everywhere program and may not contain all information available regarding this patient. Last updated 18.[facility] Allergies No known active allergies Medications * Be aware that medications may not be up to date on this document. Alwaysverify current medications with the patient. * Docusate Sodium (DSS) 100 MG(Started 09/23/2016) Take by mouth DAILY. * polyethylene glycol 3350 (MIRALAX) powder(Started 09/23/2016) Take by mouth. * traZODone (DESYREL) 50 MG tablet(Started 03/12/2021) Take 50 mg by mouth at bedtime * propranolol (INDERAL) 20 MG tablet propranolol 20 mg tablet TAKE 1 TABLET BY MOUTH 1 TIME AT BEDTIME Active Problems Problem Noted Date Diagnosed Date [...] on file Sexual Orientation Not on file Care Teams Hosiery Pairer Relationship Specialty Start Date End Date Carloz Ashley DO [address] [address] PCP - General 02/21/20
--- OUTSIDE RECORDS SUMMARY | 2024-09-23 11:50 | XMS_ITS | Clinical Summary ---
Author Organization [email or web address] Address [address] [place] [address] Care Team Providers Care Parish Worker Name Role Phone Carloz Ashley Primary Care Provider [phone] Source Comments [email or web address],non-owned Affiliates and Associated Physician Practices is amultiple site organization consisting of ambulatory clinics and hospital sitesin [place], [place], [place] and [place]. This disclosure is being madepursuant to the Care Everywhere program and may not contain all information available regarding this patient. Last updated 18.[email or web address] Allergies No known active allergies Medications * [...] and trunk 03/26/2021 Other seborrheic keratosis 03/26/2021 Family History Medical History Relation Name Comments Cancer - Skin, Melanoma Neg Hx Cancer - Skin, Non Melanoma Neg Hx Social History Tobacco Use Types Packs/Day Years Used Date Smoking Tobacco: Never Smokeless Tobacco: Never Alcohol Use Standard Drinks/Week Comments Yes 0 (1 standard drink = 0.6 oz pur e alcohol) Sex and Gender Information Value Date Recorded Sex Assigned at Not on file Gender Identity Not on file Sexual Orientation Not on file Plan of Treatment Health Maintenance Due Date Last Done Comments BONE DENSITY TESTING 1945 MEDICARE AWV 12 MONTHS 1945 HEPATITIS C SCREENING 05/29/1965 DTAP/TDAP/TD VACCINES (1 - Tdap) 1966 PNEUMOCOCCAL VACCINE 50+ (1 of 1 - PCV) 1997 ZOSTER VACCINE (1 of 2) 1997 Respiratory Syncytial Virus (RSV) Vaccine Pt: or over 60 yrs (1 - 1-dose 75+ series) 2022 COVID-19 VACCINE (1 - 2023-2 5 season) 2024 INFLUENZA VACCINE (#1) 2024 DEPRESSION SCREENING 08/18/2024 HEPATITIS B VACCINE Aged Out No longe r eligible based on patient's age to complete this topic HIB VACCINE Aged Out No longer eligi ble based on patient's age to complete this topic HPV VACCINE Aged Out No longer eligi ble based on patient's age to complete this topic MENINGOCOCCAL (Group B) VACCINE Aged Out No longer eligible based on patient's age to complete this topic MENINGOCOCCAL VACCINE Aged Out No vee smith eligible based on patient's age to complete this topic Care Teams Parish Worker Relationship Specialty Start Date End Date Carloz Ashley DO [address] [place], [place] [id number] PCP - General 02/21/20
--- OUTSIDE RECORDS SUMMARY | 2024-09-23 11:50 | XMS_ITS | Data Portability ---
Author Organization [facility] Address [address] [place] [address] Care Team Providers Care Shell Mold Bonder Name Role Phone SRINIVASA POTTS Primary Care Provider Assessment Encounter Date Assessment Date Assessment LastModified by Organization Details LastModified Time 01/25/2020 01/25/2020 Annual gynecological exam performed. Patient will come back in a year unless there are new symptoms. [email or web address] Not available 01/25/2020 14:19:48 03/16/2021 03/16/2021 healthy female exam/menopause pap- none further over 70yo mammogram ordered colonoscopy due 2028 dexa repeat 2022 Encouraged weight bearing exercise and 1500mg daily of Calcium with Vitamin D FU 1 year or prn [email or web address] Not available 03/16/2021 11:10:05 04/08/2022 04/08/2022 menopause no further pap needed mammogram due in apr colonoscopy due in 2028 dexa due Encouraged weight bearing exercise and 1500mg daily of Calcium with Vitamin D FU 1 year or prn [email or web address] Not available 04/09/2022 09:35:44 06/09/2023 06/09/2023 Annual gynecological exam performed. Patient will come back in a year unless there are new symptoms. [email or web address] Not available 06/09/2023 12:49:12 Plan of Treatment Reminders Order Date Submit Date Provider Last Modified By Organization Details Last Modified Time Details Appointments None recorded. Lab urinalysis , dipstick 2019 020 [email or web address] [facility], [address], [place], [address], 0 10:58:26 Referral None recorded. Procedures None recorded. Surgeries None recorded. Imaging MAMMO, diagnostic , digital, bilateral 2022 023 [facility], [address], [place], [address], 3 07:27:50 Medication Orders None recorded. Patient TargetsNo targets recorded. Patient InstructionsNo instructions recorded. Reason for Referral None Reported. Results Created Date Observation Date Name Description Value Unit Range Abnormal Flag Note LastModifiedBy Organization Detail LastModifiedTime 01/25/20 20 01/25/2020 urina lysis , dipst ick Leukocytes NEG Not Available Harika ledezma [address], [place], [address], 01/25/2020 14:20:37 04/30/20 21 04/30/2021 MAMMO , scree phoenix, bilat eral No observ ation record ed. [facility] [address], [place], [address], 05/01/2021 19:44:46 06/13/20 22 06/13/2022 MAMMO , scree phoenix, bilat eral No observ ation record ed. [address], [place], [address], 03/10/2023 12:34:12 07/01/20 23 06/30/2023 MAMMO , diagn ostic , digit al, bilat eral No observ ation record ed. [facility] [address], [place], [address], 07/01/2023 20:44:23 08/26/19 25 08/05/2024 MAMMO , scree phoenix, bilat eral No observ ation record ed. [place] [address], [place], [address], 08/27/2024 14:01:18 Result Notes None recorded. Problems Name Problem SNOMED Code Status Onset Date Resolution Date Notes Provider Name and Address Organization Details Recorded Time Screenin g for malignan t neoplasm of cervix Completed 201203/16/2021 Screenin g for malignan t neoplasm s of the cervix;R ecorded Elsewher e: No Locat ion: [facility] S ource: EHR Greens Or Grounds Superintendent miryam: N Ernestine ce ID: 0001 Jay lable Time: 09:30:00 AM Sabi Aguirre MD [address], [place], [address], [facility] 10:49:26 Screenin g for malignan t neoplasm of rectum Completed 201803/16/2021 Encounte r for screenin g for malignan t neoplasm of rectum;R ecorded Elsewher e: No Locat ion: [facility] S ource: EHR [employer] Grounds Superintendent miryam: N Ernestine ce ID: 0001 Jay lable Time: 10:30:00 AM Sabi Aguirre MD [address], [place], [address], [facility] 10:49:29 Speciali zed medical examinat ion Completed 201303/16/2021 Gynecolo gical Examinat ion;Stephen rded Elsewher e: No Locat ion: [facility] S ource: [employer]ounds Superintendent miryam: N Ernestine ce ID: 0001 Jay lable Time: 03:00:00 PM Sabi Aguirre MD [address], [place], [address], [facility] 10:49:37 Disorder of pelvic region of trunk Completed 201503/16/2021 Old lacerati on of muscle of pelvic floor;Re corded Elsewher e: No [facility]at ion: [facility] S [facility]ce: EHR Greens Or Grounds Superintendent miryam: N Ernestine ce ID: 0001 Jay lable Time: 10:15:00 AM Sabi Aguirre MD [address], [place], [address], [facility] 1 10:49:18 Disorder of pelvic region of trunk Completed 201503/16/2021 Cystocel e;Record ed Elsewher e: No Locat ion: [facility] S ource: EHR [employer] Grounds Superintendent miryam: N Miguelti ce ID: 0001 Jay lable Time: 10:15:00 AM Sabi Aguirre MD [address], [place], [address], [facility] [address] 10:49:[address] Concept Completed 201803/16/2021 Well woman check w/o abnormal finding; Recorded Elsewher e: No Locat ion: [facility] S ource: EHR [employer]ounds Superintendent miryam: N Miguelti ce ID: 0001 Jay lable Time: 10:30:00 AM Sabi Aguirre MD [address], [place], [address], [facility] 1 10:49:34 Radiolog ic finding 066684717 Completed 201803/16/2021 Oth abn and inconclu sive findings on dx imaging of breast;R ecorded Elsewher e: No Locat ion: [facility] S ource: EHR [employer] Grounds Superintendent miryam: N Miguelti ce ID: 0001 Jay lable Time: 03:33:45 PM Sabi Aguirre MD [address], [place], [address], [facility] 1 10:49:13 Disorder of breast 86126017 Completed 201803/16/2021 Disorder of breast, unspecif ied;Stephen rded Elsewher e: No Locat ion: [facility] S ource: EHR [employer] Grounds Superintendent miryam: N Ernestine ce ID: 0001 Jay lable Time: 10:30:00 AM MD [address], [place], [address], [facility] 1 10:49:15 Adult health examinat ion Completed 201403/16/2021 ROUTINE MEDICAL EXAM;Rec orded Elsewher e: No Locat ion: [facility] S ource: EHR [employer] Or Grounds Superintendent miryam: N Miguelti ce ID: 0001 Jay lable Time: 10:30:00 AM Sabi Aguirre MD [address], [place], [address], [facility] 10:49:10 Acquired atrophy of uterus 27912484 Completed 201503/16/2021 Other specifie d noninfla mmatory disorder s of uterus;P ractice ID: 0001 Sabi Aguirre MD [address], [place], [address], [facility] 10:49:[address] Concept Completed 201803/16/2021 Encntr for general adult medical exam w/o abnormal findings ;Practic e ID: 0001 Sabi Aguirre MD [address], [place], [address], [facility] 10:49:31 Female genital organ symptoms 390193991 Completed 201303/16/2021 Unspecif ied symptom associat ed with 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;R ecorded Elsewher e: No Locat ion: [facility] S ource: EHR Greens Or Grounds Superintendent miryam: N Ernestine ce ID: 0001 Jay lable Time: 03:00:00 PM Sabi Aguirre MD [address], [place], [address], [facility] 10:49:24 Osteopen ia 914819307 Active 2020 Sabi Aguirre MD [address], [place], [address], [facility] 1 11:10:16 History of hysterec armida 978667173 Active 2015 supracer vical and BS, ovaries in Sabi Aguirre MD [address], [place], [address], [facility] 1 11:10:50 Atrial fibrilla tion 78162307 Active 2021 Sabi Aguirre MD [address], [place], [address], [facility] 2 09:31:53 Problem Notes None recorded. Procedures Surgical History Date Name Laterality Status Provider Name and Address Organization Details Recorded Time 04/30/20 21 Date of Last Mammogram completed [facility] 04/08/2022 09:44:03 08/18/19 21 Most Recent Bone Density completed [facility] 04/08/2022 09:43:45 11/05/19 19 Date of Last Pap Smear completed [facility] 03/16/2021 09:39:15 08/18/19 19 Date of Last Colonoscopy completed [facility] 04/08/2022 09:43:37 11/13/19 16 supracervical hysterectomy completed [facility] 01/24/2020 16:46:45 11/13/19 16 sacrocolpopexy completed [facility] 01/24/2020 16:47:38 08/18/19 08 Hysteroscopy completed [facility] 01/24/2020 16:47:03 Imaging Results Imaging Date Name Status LastModified by Organiz ation Details LastModified Time 04/30/2021 MAMMO, screening, bilateral completed [facility] [address] [facility], [place], [address], 05/01/2021 19:44:46 06/13/2022 MAMMO, screening, bilateral completed [email or web address] [address], [place], [address], 03/10/2023 12:34:12 06/30/2023 MAMMO, diagnostic, digital, bilateral completed [facility] [address], [place], [address], 07/01/2023 20:44:23 08/05/2024 MAMMO, screening, bilateral completed [email or web address] [place] [address] [address], [place], [address], 08/27/2024 14:01:18 Procedure Notes None recorded. Medical Equipment None Reported. Allergies No known drug allergies Medications Name Sig Start Date Stop Date Status Note LastModified by Organization Details LastModified Time Miralax 17 gram/dose oral powder take by oral route every day mixed with 8 oz. water, juice, soda, coffee or tea active Prescrib ed Elsewher e: Yes Loca tion: [facility] odify By: baltazar Vieira ncountroopa DateTime : 11/05/19 10:30:00 AM Not Available Not Available Not Available trazodone 50 mg tablet TAKE 2 TABLETS BY MOUTH EVERY NIGHT AT BEDTIME 06/09 completed Not Available Not Available Not Available atorvasta tin 10 mg tablet TAKE 1 TABLET BY MOUTH AT BEDTIME active Not Available Not Available No t Available azithromy jose 250 mg tablet 01/24 completed Not Available Not Available Not Available benzonata te 200 mg capsule TAKE 1 CAPSULE BY MOUTH THREE TIMES DAILY NEEDED FOR COUGH 06/09 completed Not Available Not Available Not Available urea 40 % topical cream APPLY TO CALLUSES DAILY active Not Available Not Available No t Available flurbipro fen 0.03 % eye drops active Not Available Not Available Not Available meclizine 12.5 mg tablet active Not Available Not Available Not Available doxepin 10 mg capsule active Not Available Not Available Not Available peg-elect rolyte solution 420 gram oral solution 01/24 completed Not Available Not Available Not Available aspirin 81 mg tablet,de layed release TAKE 1 TABLET BY MOUTH EVERY MORNING 04/08 completed Not Available Not Available Not Available terbinafi ne HCl 250 mg tablet TAKE 1 TABLET BY MOUTH DAILY 03/16 completed Not Available Not Available Not Available prednisol one acetate 1 % eye drops,karel pension active Not Available Not Available Not Available ciproflox acin 0.3 % eye drops active Not Available Not Available Not Available meclizine 25 mg tablet TK 1 T PO TID PRF DIZZINES S 03/16 completed Not Available Not Available Not Available benzonata te 100 mg capsule 01/24 completed Not Available Not Available Not Available metoprolo l succinate ER 25 mg tablet,ex tended release 24 hr TAKE 1 TABLET BY MOUTH DAILY active Not Available Not Available No t Available propranol ol 20 mg tablet TAKE 1 TABLET BY MOUTH 1 TIME AT BEDTIME 04/08 completed Not Available Not Available Not Available Cymbalta 20 mg capsule,d elayed release take 3 Capsule by oral route every day 06/21 completed Prescrib ba Hodge e: Yes Loca tion: [facility] M odify By: [email or web address] Vieira ncounter DateTime : 02/11/20 14 03:00:00 PM Not Available Not Available Not Available Miralax 03/16 completed Not Available Not Available Not Available Xarelto 20 mg tablet TAKE 1 TABLET DAILY active Not Available Not Available No t Available Fluzone High-Dose 2019-20 (PF) 180 mcg/0.5 mL intramusc ular syringe 01/24 completed Not Available Not Available Not Available Vitals Date Recorded Body height Body mass index (BMI) Body weight Systolic blood pressure Diastolic blood pressure Provider Name and Address Organization Details Last Updated DateTime 03/16/2021 167.64 cm 23.9 kg/m2 21331.67 g 114 mm[Hg] 73 mm[Hg] Gricelda Paris [facility] 10:41:38 Date Recorded Body height Body mass index (BMI) Body weight Systolic blood pressure Diastolic blood pressure Provider Name and Address Organization Details Last Updated DateTime 01/25/2020 167.64 cm 25.3 kg/m2 77653 g 156 mm[Hg] 80 mm[Hg] [facility] 0 14:18:53 Date Recorded Body height Body mass index (BMI) Body weight Systolic blood pressure Diastolic blood pressure Provider Name and Address Organization Details Last Updated DateTime 04/08/2022 167.64 cm 23.9 kg/m2 76217.67 g 116 mm[Hg] 73 mm[Hg] Gricelda Paris [facility] 2 09:41:58 Date Recorded Body height Body mass index (BMI) Body weight Systolic blood pressure Diastolic blood pressure Provider Name and Address Organization Details Last Updated DateTime 06/09/2023 167.64 cm 22 kg/m2 46990.72 g 125 mm[Hg] 72 mm[Hg] Brigida Ragland [facility] 3 12:55:23 Date Recorded Body height Body mass index (BMI) Body weight Systolic blood pressure Diastolic blood pressure Provider Name and Address Organization Details Last Updated DateTime 07/02/2024 167.64 cm 24.7 kg/m2 09387.63 g 147 mm[Hg] 76 mm[Hg] Moira Mary [facility] 4 13:00:13 Social History Question Answer Notes LastModified by Organizat ion Details LastModified Time Tobacco Smoking Status Never Smoker [facility] 01/24/2020 16:46:24 In The 14 Days Before Symptom Onset, Have You Had Close Contact With A Laboratory-confirm ed COVID-19 While That Case Was Ill? No Information n ot available 07/02/2024 In The 14 Days Before Symptom Onset, Have You Had Close Contact With A Person Who Is Under Investigation For COVID-19 While That Person Was Ill? No Information not available 07/02/2024 Have You Been To An Area Known To Be High Risk For COVID-19? No [email or web address] Information not available 07/02/2024 Do You Use Any Illicit Or Recreational Drugs? No Information not available 03/16/2021 Has Tobacco Cessation Counseling Been Provided? No Information not available 03/16/2021 Do You Or Have You Ever Used Any Other Forms Of Tobacco Or Nicotine? No Information not available 03/16/2021 Sex: Unknown Functional Status None recorded. Mental Status None recorded. Family History Relationship Description Onset Age of this Age Resolved Age Notes LastModified by Organization Details LastModified Time Mother Family history of coronary arterioscler osis [email or web address] Not available 01/23 16:46:11 Notes:Mother: Coronary arter y disease Medical History No medical history recorded. Gynecological History Statement/Question Response Date of Last Pap Smear 11/04/2018 Current Control Method Hysterectom y Date of Last Mammogram 04/30/2021 Date of Last Colonoscopy 08/18/2018 Most Recent Bone Density 08/18/2020 Obstetrics History GPAL:G 0 P 0 0 0 0 Past Encounters Encounter ID Performer Location Encounter Start Date Encounter Closed Date Diagnosis/Indication Diagnosis SNOMED-CT Code Diagnosis ICD10 Code Diagnosis Note [id number] [facility] [address] [address] 01/25/2020 14:12:59 01/25/2020 16:57:18 Gynecologic examination 01466123 Z01.419 No pap needed due to age and s/p hyst. She had MMG 04/09/19 so due in March, order given. Colonoscop y 05/2019, normal per report [id number] Sabi Aguirre MD [facility] [address],[place] [address] 03/16/2021 10:22:29 03/16/2021 11:15:15 Gynecologic examination 72765099 Z01.419 Osteopenia 833066098 M85 .80 [id number] Sabi Aguirre MD [facility] [address],[place] [address] 04/08/2022 09:34:24 04/09/2022 15:30:26 Osteopenia 116286768 M85.80 History of hysterectomy 289543554 Z90.711 Menopause present 739050 006 N95.1 [id number] ISABEL VASQUEZ MD [facility] [address],[place] [address] 06/09/2023 12:33:07 06/09/2023 13:59:55 Mass of left breast 5158426240 7955931 N63.20 - noticed asymmetric of L vs R breast after weight loss of 18 lbs this summer- no masses on exam, noticeable asymmetry of L vs R breast- diagnostic mammogram ordered Gynecologi c examination 77809540 Z01.419 [facility]- Cervical cancer screening: Pap smear not indicated- Breast cancer screening: mammogram ordered*- Colon cancer screening: next 2028- STD testing: declines- hereditary cancer screening: does not qualify for testing Prolapse o f 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 42031272 N81.9 - s/p sacrocolpo pexy in 2016- no evidence of recurrent prolapse on exam- no issues with incontinen ce or incomplete emptying [id number] ISABEL VASQUEZ MD [facility] [address] [address] 07/02/2024 12:29:23 07/05/2024 10:50:45 Prolapse of 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 71767902 N81.9 - s/p sacrocolpo pexy in 2015- no evidence of recurrent prolapse on exam today- no issues with incontinen ce or incomplete emptying- discussed safety of vaginal intercours e, no contraindi cations following sacrocolpo pexy- discussed possible vaginal dryness due to atrophy, patient to call if she has issues Gynecologi c examination 96436360 Z01.419 [facility]- Cervical cancer screening: Pap smear not indicated- Breast cancer screening: mammogram completed- Colon cancer screening: next 2028- STD testing: declines- hereditary cancer screening: does not qualify for testing Health Concerns Section Related Observation LastModified by Organization Detai ls LastModified Time None Recorded Concern Status LastModified by Organization Details LastModified Time None Recorded Advance Directives Directive None Recorded Payers Encounter Date Sequence Insurance Name Policy Number Policy Sommer Covered Member ID Sommer Member ID Guarantor Name 01/25/2020 2 [place] [address] [place] [id number] Lenka Florence 01/25/2020 1 [place] Lenka Florence [id number] Lenka Florence 03/16/2021 2 [place] [address] [place] [id number] Lenka Florence 03/16/2021 1 [place] Lenka Chaves Naman [id number] Lenka Naman 04/08/2022 [address] [facility]: [place]AL EMPLOYEE PROGRAM (PPO) [address] Chaves Tdcallieromie [id number] Lenka Naman 04/08/2022 1 [place] Lenka Chaves Naman [id number] Lenkapreet Florence 06/09/2023 2 [facility]: FEDERAL EMPLOYEE PROGRAM (PPO) [address] Chaves Naman [id number] Lenka Naman 06/09/2023 1 [place] Lenka Chaves Naman [id number] Lenka Naman 07/02/2024 2 [facility]: FEDERAL EMPLOYEE PROGRAM (PPO) [address] Chaves Naman [id number] Lenka Naman 07/02/2024 1 [place] Lenka Chaves Naman [id number] Lenka Naman Notes Date Note Type Note Provider Name and Address Organization Details Recorded Time 01/25/2020 text/html Annual GYNReport ed bypatient.Menstrual cycle:Normal menses Urinary symptoms:No hematuria; No incontinence Vulva:No genital lesion Vagina:Normal vaginal discharge Breast:No breast pain; No breast lump; No nipple discharge Sexual complaints:No sexual complaints; No pain during intercourse; Normal libido Menopausal Symptoms:No menopausal symptoms; Normal vaginal lubrication Psychological symptoms:No depression; No anxiety; No PMDD S Antione gimenez [facility] 01/25/2020 14:46:59 03/16/2021 text/html Patient is a 75y o G0 who presents for an annual exam. No concerns. supracervical hyst, ovaries in, 2016 for prolapse. last pap-2018 nilm mammo-01/2019 colonoscopy-05/2019 , 10 years dexa-11/2020 osteopenia menopause-yes sexually active-no seatbelts-y exercise-a little depression-denies domestic violence-denies tobacco-no concerns-none Sabi Aguirre MD [address], [place], [address], [facility] 03/16/2021 11:11:04 04/08/2022 text/html Patient is a 76y o G0 who presents for yearly follow up for osteopenia, breast and pelvic exam. Was diagnosed with a-fib this year and is now anticoagulated. Had a supracervical hyst and has ovaries in. mammo-04/2021 colonoscopy-05/2019 dexa-11/2020 osteopenia menopause-y sexually active-n seatbelts-y exercise-y depression-denies domestic violence-denies tobacco-n concerns-n Sabi Aguirre MD [address], [place], [address], [facility] 04/09/2022 09:35:59 06/09/2023 text/html Presents today f or her annual well-woman exam. She reports concerns of today. Denies abnormal vaginal discharge. She is sexually active and denies dyspareunia. She has not noticed any changes or masses in her breasts. Breast problem Prolapse? ISABEL VASQUEZ MD [address], [place], [address], [facility] 06/09/2023 13:52:52 07/02/2024 text/html Presents today f or follow up. Denies abnormal vaginal discharge. She is not sexually active as she is concerned due to her history of sacrocolpopexy. Denies new prolapse or difficulty with urination. She has not noticed any changes or masses in her breasts. Up to date on mammograms. Next scheduled for July. Menopausal, no PMB. No hx of abnormal pap smears. ISABEL VASQUEZ MD [address], [place], [address], [facility] 07/02/2024 17:51:41 OBGyn Episode No OBEpisode recorded.
--- OUTSIDE RECORDS SUMMARY | 2024-09-23 11:50 | XMS_ITS | Clinical Summary ---
Author Organization [facility] Address [address] [place] [address] Care Team Providers Care Balloon Artist Name Role Phone Carloz Ashley DO Primary Care Provider [phone] Allergies No known active allergies Medications polyethylene glycol 3350 (MIRALAX) 17 gram/dose Powder Take by mouth Continuous as needed . 7 Active Active Problems Problem Noted Date Diagnosed Date Microcalcifications of the breast 12/31/2018 Abnormal mammogram 12/31/2018 Social History Tobacco Use Types Packs/Day Years Used Date Smoking Tobacco: Never Smokeless Tobacco: Never Alcohol Use Standard Drinks/Week Comments Yes 0 (1 standard drink = 0.6 oz pur e alcohol) Comments No Sex and Gender Information Value Date Recorded Sex Assigned at Not on file Legal Sex Female 10:28 AM CDT Gender Identity Not on file Sexual Orientation Not on file Last Filed Vital Signs Vital Sign Reading Time Taken Comments Blood Pressure 112/79 04/14/2019 10:54 AM CDT Pulse 78 04/14/2019 10:54 AM CDT Temperature 36.9 C (98.5 F) 04/14/2019 10:54 AM CDT Respiratory Rate - - Oxygen Saturation 98% 04/14/2019 10:54 AM CDT Inhaled Oxygen Concentration - - Weight 67 kg (147 lb 11.2 oz) 04/14/2019 10:54 A M CDT Height 167.6 cm (5' 6 ) 04/14/2019 10:54 AM CDT Body Mass Index 23.84 04/14/2019 10:54 AM CDT Plan of Treatment Health Maintenance Due Date Last Done Comments DTAP/TDAP/TD VACCINES (1 - Tdap) 1966 PNEUMOCOCCAL VACCINE 65+ YEARS (1 of 1 - PCV) 06/03/19 97 ZOSTER VACCINE (1 of 2) 1997 OSTEOPOROSIS SCREENING 2012 RSV VACCINE (60+ or ) (1 - 1-dose 75+ series) 2022 INFLUENZA VACCINE (#1) 2024 Insurance MEDICARE PART A AND B [facility] Care Teams Balloon Artist Relationship Specialty Start Date End Date Carloz Ashley DO [address] [facility] [address] [place] [address] PCP - General Internal Medicine 12/31/18
== END 2024-09-23 11:31 | disposition home or self-care (01) ==
PROVIDERS: PCP Family Medicine; Visit Provider Obstetrics & Gynecology
DX: R92.8 Other abnormal and inconclusive findings on diagnostic imaging of breast (principal)
CPT/HCPCS: 76642; 77061; 77065; G0279

== ENCOUNTER 2024-10-01 00:27 | Day surgery (SDC) | payer MEDICARE, BC, SELFPAY ==
[2024-09-23 13:15] VITALS: BMI 25.0
--- NOTE | 2024-09-28 10:13 | PC.NURSE ---
Spoke with patient regarding medication XARELTO. Patient verbalizes understanding that the last dose is to be taken on 09/28/2024 and the Endoscopist will instruct them when to restart after the procedure.
--- OUTSIDE RECORDS SUMMARY | 2024-10-01 00:30 | XMS_ITS | Clinical Summary ---
Author Organization [facility] Address [address] [place] [address] Care Team Providers Care Photoengraver Apprentice Name Role Phone Carloz Ashley Primary Care Provider [phone] Source Comments [facility],non-owned Affiliates and Associated Physician Practices is amultiple site organization consisting of ambulatory clinics and hospital sitesin [place], [place], [place] and [place]. This disclosure is being madepursuant to the Care Everywhere program and may not contain all information available regarding this patient. Last updated 18.[facility] Allergies No known active allergies Medications * [...] topic MENINGOCOCCAL VACCINE Aged Out No vee smiht eligible based on patient's age to complete this topic Care Teams Photoengraver Apprentice Relationship Specialty Start Date End Date Carloz Ashley DO [address] [place], [place] [id number] PCP - General 02/21/20
--- OUTSIDE RECORDS SUMMARY | 2024-10-01 00:30 | XMS_ITS | Referral Summary ---
Author Organization [facility] Address [address] [place] [address] Care Team Providers Care Underground Mine Machinery Mechanic Name Role Phone Carloz Ashley Primary Care Provider Source Comments [facility],non-owned Affiliates and Associated Physician Practices is amultiple site organization consisting of ambulatory clinics and hospital sitesin [place], [place], [place] and [place]. This disclosure is being madepursuant to the Care Everywhere program and may not contain all information available regarding this patient. Last updated 18.[facility] Allergies No known active allergies Medications * [...] of Treatment Not on file Care Teams Underground Mine Machinery Mechanic Relationship Specialty Start Date End Date Carloz Ashley DO [address] [place] [address] PCP - General 02/21/20
--- OUTSIDE RECORDS SUMMARY | 2024-10-01 00:30 | XMS_ITS | Clinical Summary ---
Author Organization [facility] Address [address] [place] [address] Care Team Providers Care Bull Gang Worker Name Role Phone Carloz Ashley DO Primary Care Provider [phone] Allergies No known active allergies Medications polyethylene [...] 2024 Insurance MEDICARE PART A AND B [facility] Care Teams Bull Gang Worker Relationship Specialty Start Date End Date Carloz Ashley DO [address] [facility] [address] [place] [address] PCP - General Internal Medicine 12/31/18
--- OUTSIDE RECORDS SUMMARY | 2024-10-01 00:30 | XMS_ITS | Patient Health Summary ---
Author Organization [facility] Address [address] [place] [address] Care Team Providers Care Applications Administrator Name Role Phone Carloz Ashley Primary Care Provider [phone] Note from [facility],non-owned Affiliates and Associated Physician Practices is amultiple site organization consisting of ambulatory clinics and hospital sitesin [place], [place], [place] and [place]. This disclosure is being madepursuant to the Care Everywhere program and may not contain all information available regarding this patient. Last updated 18.[facility] Allergies No known active allergies Medications * [...] Sexual Orientation Not on file Care Teams Applications Administrator Relationship Specialty Start Date End Date Carloz Ashley DO [address] [address] PCP - General 02/21/20
--- OUTSIDE RECORDS SUMMARY | 2024-10-01 00:31 | XMS_ITS | Data Portability ---
Author Organization [facility] [place] Address [address] [place] [address] [address] Care Team Providers Care Turn Out Worker Name Role Phone SRINIVASA POTTS Primary Care [...] Vitamin D FU 1 year or prn [email or web address] Not available 03/16/2021 11:10:05 04/08/2022 04/08/2022 menopause no further pap needed mammogram due in apr colonoscopy due in 2028 dexa due Encouraged weight bearing exercise and 1500mg daily of Calcium with Vitamin D FU 1 year or prn [email or web address] Not available 04/09/2022 09:35:44 06/09/2023 06/09/2023 Annual gynecological exam performed. Patient will come back in a year unless there are new symptoms. [email or web address] Not available 06/09/2023 12:49:12 Plan of Treatment Reminders Order Date Submit Date Provider Last Modified By Organization Details Last Modified Time Details Appointments None recorded. Lab urinalysis , dipstick 2019 020 [email or web address] [place], [address], [place], [address], 0 10:58:26 Referral None recorded. Procedures None recorded. Surgeries None recorded. Imaging MAMMO, diagnostic , digital, bilateral 2022 023 [facility], [address], [place], [address], 3 07:27:50 Medication Orders None recorded. Patient TargetsNo targets recorded. Patient InstructionsNo instructions recorded. Reason for Referral None Reported. Results Created Date Observation Date Name Description Value Unit Range Abnormal Flag Note LastModifiedBy Organization Detail LastModifiedTime 01/25/20 20 01/25/2020 urina lysis , dipst ick Leukocytes NEG Not Available Harika ledezma [address], [place], [address], 01/25/2020 14:20:37 04/30/20 21 04/30/2021 MAMMO , scree phoenix, bilat eral No observ ation record ed. [facility] [address], [place], [address], 05/01/2021 19:44:46 06/13/20 22 06/13/2022 MAMMO , scree [place], bilat eral No observ ation record ed. [address], [place], [address], 03/10/2023 12:34:12 07/01/20 23 06/30/2023 MAMMO , diagn ostic , digit al, bilat eral No observ ation record ed. [facility] [address], [place], [address], 07/01/2023 20:44:23 08/26/19 25 08/05/2024 MAMMO , scree [place]oenix, bilat eral No observ ation record ed. [place] [address], [place], [address], 08/27/2024 14:01:18 09/23/19 25 09/23/2024 imagi ng/di agnos tic resul t No observ ation record ed. [facility] [address], [place], [address], 09/23/2024 16:11:27 Result Notes None recorded. Problems Name Problem SNOMED Code Status Onset Date Resolution Date Notes Provider Name and Address Organization Details Recorded Time Screenin g for malignan t neoplasm of cervix Completed 201203/16/2021 Screenin g for malignan t neoplasm s of the cervix;R ecorded Elsewher e: No Locat ion: [facility] S ource: EHR Primary Special Education Teacher miryam: N Practi ce ID: 0001 Jay lable Time: 09:30:00 AM Sabi Aguirre MD [address], [place], [address], [facility] 10:49:26 Screenin g for malignan t neoplasm of rectum Completed 201803/16/2021 Encounte r for screenin g for malignan t neoplasm of rectum;R ecorded Elsewher e: No Locat ion: [facility] S ource: EHR Primary Special Education Teacher miryam: N Practi ce ID: 0001 Jay lable Time: 10:30:00 AM Sabi Aguirre MD [address], [place], [address], [facility] 10:49:29 Speciali zed medical examinat ion Completed 201303/16/2021 Gynecolo gical Examinat ion;Stephen rded Elsewher e: No Locat ion: [facility] S ource: EHR Primary Special Education Teacher miryam: N Practi ce ID: 0001 Jay lable Time: 03:00:00 PM Sabi Aguirre MD [address], [place], [address], [facility] 10:49:37 Disorder of pelvic region of trunk Completed 201503/16/2021 Old lacerati on of muscle of pelvic floor;Re corded Elsewher e: No Locat ion: [facility] S ource: EHR Primary Special Education Teacher miryam: N Miguelti ce ID: 0001 Jay lable Time: 10:15:00 AM Sabi Aguirre MD [address], [place], [address], [facility] 1 10:49:18 Disorder of pelvic region of trunk Completed 201503/16/2021 Cystocel e;Record ed Elsewher e: No Locat ion: [facility] S ource: EHR Primary Special Education Teacher miryam: N Miguelti ce ID: 0001 Jay lable Time: 10:15:00 AM MD [address], [place], [address], [facility] [address] 10:49:[address] Concept Completed 201803/16/2021 Well woman check w/o abnormal finding; Recorded Elsewher e: No Locat ion: [facility] S ource: EHR Primary Special Education Teacher miryam: N Miguelti ce ID: 0001 Jay lable Time: 10:30:00 AM MD [address], [place], [address], [facility] 1 10:49:34 Radiolog ic finding [id number] Completed 201803/16/2021 Oth abn and inconclu sive findings on dx imaging of breast;R ecorded Elsewher e: No Locat ion: [facility] S ource: EHR Primary Special Education Teacher miryam: N Miguelti ce ID: 0001 Jay lable Time: 03:33:45 PM MD [address], [place], [address], [facility] 10:49:13 Disorder of breast 36535934 Completed 201803/16/2021 Disorder of breast, unspecif ied;Stephen rded Elsewher e: No Locat ion: [facility] S ource: EHR Primary Special Education Teacher miryam: N Practi ce ID: 0001 Jay lable Time: 10:30:00 AM Sabi Aguirre MD [address], [place], [address], [facility] 1 10:49:15 Adult health examinat ion Completed 201403/16/2021 ROUTINE MEDICAL EXAM;Rec orded Elsewher e: No Locat ion: [facility] S ource: EHR Primary Special Education Teacher miryam: N Practi ce ID: 0001 Jay lable Time: 10:30:00 AM Sabi Aguirre MD [address], [place], [address], [facility] 1 10:49:10 Acquired atrophy of uterus 25351607 Completed 201503/16/2021 Other specifie d noninfla mmatory disorder s of uterus;P ractice ID: 0001 Sabi Aguirre MD [address], [place], [address], [facility] 10:49:[address] Concept Completed 201803/16/2021 Encntr for general adult medical exam w/o abnormal findings ;Practic e ID: 0001 Sabi Aguirre MD [address], [place], [address], [facility] 10:49:31 Female genital organ symptoms 499584674 Completed 201303/16/2021 Unspecif ied symptom associat ed with 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;R ecorded Elsewher e: No Locat ion: [facility] S ource: EHR Primary Special Education Teacher miryam: N Practi ce ID: 0001 Jay lable Time: 03:00:00 PM Sabi Aguirre MD [address], [place], [address], [facility] 1 10:49:24 Osteopen ia 744353976 Active 2020 Sabi Aguirre MD [address], [place], [address], [facility] 1 11:10:16 History of hysterec armida 294741784 Active 2015 supracer vical and BS, ovaries in Sabi Aguirre MD [address], [place], [address], [facility] 1 11:10:50 Atrial fibrilla tion 67948477 Active 2021 Sabi Aguirre MD [address], [place], [address], [facility] 2 09:31:53 Problem Notes None recorded. Procedures Surgical History Date Name Laterality Status Provider Name and Address Organization Details Recorded Time 04/30/20 21 Date of Last Mammogram completed [facility] 04/08/2022 09:44:03 08/18/19 21 Most Recent Bone Density completed [facility] 04/08/2022 09:43:45 11/05/19 19 Date of Last Pap Smear completed [facility] 03/16/2021 09:39:15 08/18/19 19 Date of Last Colonoscopy completed [facility] 04/08/2022 09:43:37 11/13/19 16 supracervical hysterectomy completed [facility] 01/24/2020 16:46:45 11/13/19 16 sacrocolpopexy completed [facility] 01/24/2020 16:47:38 08/18/19 08 Hysteroscopy completed [facility] 01/24/2020 16:47:03 Imaging Results Imaging Date Name Status LastModified by [facility] Details LastModified Time 04/30/2021 MAMMO, screening, bilateral completed [facility] [address], [place], [address], 05/01/2021 19:44:46 06/13/2022 MAMMO, screening, bilateral completed [address] [facility] [address], [place], [address], 03/10/2023 12:34:12 06/30/2023 MAMMO, diagnostic, digital, bilateral completed [facility] [address], [place], [address], 07/01/2023 20:44:23 08/05/2024 MAMMO, screening, bilateral completed [address], [place], [address], 08/27/2024 14:01:18 09/23/2024 imaging/diagno stic result active [address], [place], [address], 09/23/2024 16:11:27 Procedure Notes None recorded. Medical Equipment None Reported. Allergies No known drug allergies Medications Name Sig Start Date Stop Date Status Note LastModified by Organization Details LastModified Time Miralax 17 gram/dose oral powder take by oral route every day mixed with 8 oz. water, juice, soda, coffee or tea active Prescrib ed Elsewher e: Yes Loca tion: [facility] M odify By: baltazar Vieira [email or web address] DateTime : [...] Prescrib ba Hodge e: Yes Loca tion: [facility] odify By: amkuhstan Vieira ncobenja DateTime : 02/11/20 14 03:00:00 PM Not [...] Updated DateTime 03/16/2021 167.64 cm 23.9 kg/m2 54673.67 g 114 mm[Hg] 73 mm[Hg] [facility] 1 10:41:38 Date Recorded Body height Body mass index (BMI) Body weight Systolic blood pressure Diastolic blood pressure Provider Name and Address Organization Details Last Updated DateTime 01/25/2020 167.64 cm 25.3 kg/m2 62143 g 156 mm[Hg] 80 mm[Hg] [facility] 0 14:18:53 Date Recorded Body height Body mass index (BMI) Body weight Systolic blood pressure Diastolic blood pressure Provider Name and Address Organization Details Last Updated DateTime 04/08/2022 167.64 cm 23.9 kg/m2 20129.67 g 116 mm[Hg] 73 mm[Hg] [facility] 2 09:41:58 Date Recorded Body height Body mass index (BMI) Body weight Systolic blood pressure Diastolic blood pressure Provider Name and Address Organization Details Last Updated DateTime 06/09/2023 167.64 cm 22 kg/m2 13671.72 g 125 mm[Hg] 72 mm[Hg] Brigida Ragland [facility] 3 12:55:23 Date Recorded Body height Body mass index (BMI) Body weight Systolic blood pressure Diastolic blood pressure Provider Name and Address Organization Details Last Updated DateTime 07/02/2024 167.64 cm 24.7 kg/m2 91992.63 g 147 mm[Hg] 76 mm[Hg] Moira Mary [facility] 4 13:00:13 Social History Question Answer Notes LastModified by Organizat ion Details LastModified Time Tobacco Smoking Status Never Smoker [facility] 01/24/2020 16:46:24 In The 14 Days [...] To Be High Risk For COVID-19? No [email or web address] Information not available 07/02/2024 Do You Use [...] ICD10 Code Diagnosis Note [address] [place] [address],[facility] [place] [address] 01/25/2020 14:12:59 01/25/2020 16:57:18 Gynecologic examination 51741179 Z01.419 No pap needed due to age and s/p hyst. She had MMG 04/09/19 so due in March, order given. Colonoscop y 05/2019, normal per report [id number] Sabi Aguirre MD [place] [address],[place] [address] 03/16/2021 10:22:29 03/16/2021 11:15:15 Gynecologic examination 98101141 Z01.419 Osteopenia 891195910 M85 .80 [id number] Sabi Agurire MD [place] [address],[place] [address] 04/08/2022 09:34:24 04/09/2022 15:30:26 Osteopenia 530666115 M85.80 History of hysterectomy 675918218 Z90.711 Menopause present 599820 006 N95.1 112014 ISABEL VASQUEZ MD [place] [address] [address] 06/09/2023 12:33:07 06/09/2023 13:59:55 Mass of left breast 7438404048 8192065 N63.20 - noticed asymmetric of L vs R breast after weight loss of 18 lbs this summer- no masses on exam, noticeable asymmetry of L vs R breast- diagnostic mammogram ordered Gynecologi c examination 48196220 Z01.419 Well woman care- Cervical cancer screening: Pap smear not indicated- Breast cancer screening: mammogram ordered*- Colon cancer screening: next 2028- STD testing: declines- hereditary cancer screening: does not qualify for testing Prolapse o f 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 69236440 N81.9 - s/p sacrocolpo pexy in 2016- no evidence of recurrent prolapse on exam- no issues with incontinen ce or incomplete emptying [id number] ISABEL VASQUEZ MD [place] [address] [address] 07/02/2024 12:29:23 07/05/2024 10:50:45 Prolapse of 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 72677235 N81.9 - s/p sacrocolpo pexy in 2016- no evidence of recurrent prolapse on exam today- no issues with incontinen ce or incomplete emptying- discussed safety of vaginal intercours e, no contraindi cations following sacrocolpo pexy- discussed possible vaginal dryness due to atrophy, patient to call if she has issues Gynecologi c examination 44956986 Z01.419 [facility] woman care- Cervical cancer screening: Pap smear [...] [place] [address] [id number] Lenka [place] 01/25/2020 1 [place] Lenka Andie [place] [id number] Lenka [place] 03/16/2021 2 [place] [address] [place] [id number] Lenka [place] 03/16/2021 1 [place] Lenkapreet [place] [id number] Lenka [place] 04/08/2022 2 [place] [address] [place] [id number] Lenka [place] 04/08/2022 1 [place] Lenka [place] [id number] Lenka [place] 06/09/2023 2 [place] [address] [place] [id number] Lenka [place] 06/09/2023 1 [place] Lenka [place] [id number] Lenka [place] 07/02/2024 2 [place] [address] [place] [id number] Lenka [place] 07/02/2024 1 [place] Lenka [place] [id number] 8 Lenka [place] Notes Date Note Type Note Provider Name [...] symptoms:No depression; No anxiety; No PMDD S JENNIFER Haynes - [facility] 01/25/2020 14:46:59 03/16/2021 text/html Patient is a 75y o G0 who presents for an annual exam. No concerns. supracervical hyst, ovaries in, 2016 for prolapse. last pap-2019 nilm mammo-01/2019 colonoscopy-05/2019 , 10 years dexa-11/2020 osteopenia menopause-yes sexually active-no seatbelts-y exercise-a little depression-denies domestic violence-denies tobacco-no concerns-none Sabi Aguirre MD [address], [place], [address], [facility] 03/16/2021 11:11:04 04/08/2022 text/html Patient is a 76y o G0 who presents for yearly follow up for osteopenia, breast and pelvic exam. Was diagnosed with a-fib this year and is now anticoagulated. Had a supracervical hyst and has ovaries in. mammo-04/2021 colonoscopy-05/2019 dexa-11/2020 osteopenia menopause-y sexually active-n seatbelts-y exercise-y depression-denies domestic violence-denies tobacco-n concerns-n Sabi Aguirre MD [address], [place], [address], [facility] 04/09/2022 09:35:59 06/09/2023 text/html Presents today f or her annual well-woman exam. She reports concerns of today. Denies abnormal vaginal discharge. She is sexually active and denies dyspareunia. She has not noticed any changes or masses in her breasts. Breast problem Prolapse? ISABEL VASQUEZ MD [address], [place], [address], [facility] 06/09/2023 13:52:52 07/02/2024 text/html Presents today [...] smears. ISABEL VASQUEZ MD [address], [place], [address], [place] - [facility] 07/02/2024 17:51:41 OBGyn Episode No OBEpisode recorded.
[2024-10-01 09:15] VITALS: BP 136/68; PULSE 88; RESP 16; TEMP 36.1; O2SAT 99; BMI 24.2
--- NOTE | 2024-10-01 09:32 | PM.HPGS ---
History of Present Illness History of Present Illness Consent: Risks, benefits, and alternatives have been discussed and questions answered. Patient agrees to proceed with procedure. Chief complaint: hx colon polyps Narrative: Lenka Florence is a 79 year old female with colon polyp ~ 5 years ago Review of Systems Review of Systems: All systems reviewed & are unremarkable except as noted in HPI and below PMFSH Past Medical History Medical History (Updated 05/18/24 @ 11:58 by Cee Humphries APRN) Lack of social support Left knee DJD Lipoma of right thigh Degenerative joint disease of knee Knee joint effusion Constipation Dizziness Left knee pain Palpitations Pain of left calf Screening for breast cancer Anxiety, generalized Cyst of pancreas Hx of colonic polyp Liver hemangioma Nonspecific abnormality on liver isotope scan Other irritable bowel syndrome Postmenopausal Stress incontinence (female) (male) Surgical History Surgical History (Updated 11/03/23 @ 09:22 by Cee Humphries APRN) Hx laparoscopic cholecystectomy History of appendectomy H/O hysterectomy for benign disease Family History Family History Sibling Hypertension Mother Patient's mother is Acute myocardial infarction Father Patient's father is Acute myocardial infarction Other Diabetes mellitus Family history of arthritis Heart disease Social History Social History Social History: The patient lives with her and her daughter to grand children. Her is the durable power campaign analyst for healthcare. Her 2 children are adopted. 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 She is the lifelong nonsmoker. She does not use any marijuana alcohol or illicit drugs. Code status full code Smoking status: Never smoker Second hand tobacco smoke exposure: No Alcohol intake: never Alcohol use details: social Substance use: never Substance use type: does not use Other substance usage details: occasional alcohol Lack of Transportation: No Lack of Food: Never True Current Housing: I Have Housing Concerned About Future Housing: No Difficulty Paying Gas/Electric Bills: No Difficulty Paying for Meds: No Currently Unemployed: No Education: High School Diploma/GED Difficulty w/ Childcare or Family Care: No Gender identity (if verbalized by the patient): Female Spiritual care concerns: No Meds Home Medications and Allergies Home Medications ?Medication ?Instructions ?Recorded ?Confirmed ?Type polyethylene glycol 3350 17 17 gm PO DAILY PRN constipation 09/14/19 10/01/24 History gram/dose oral powder (Miralax) metoprolol succinate 25 mg 25 mg PO DAILY 06/24/22 10/01/24 History tablet,extended release 24 hr rivaroxaban 20 mg tablet (Xarelto) 20 mg PO QPM 06/24/22 10/01/24 History atorvastatin 10 mg tablet 10 mg PO HS #90 tabs 01/23/24 10/01/24 Rx doxepin 10 mg capsule 10 mg PO QHS #90 caps 05/10/24 10/01/24 Rx Allergies Allergy/AdvReac Type Severity Reaction Status Date / Time No Known Allergies Allergy Verified 10/01/24 09:26 Vital Signs Vital Signs - 24 hr 10/01/24 09:15 Temperature 96.9 F L Pulse Rate 88 Respiratory Rate 16 Blood Pressure 136/68 Pulse Oximetry 99 Oxygen Delivery Room Air Exam Const: General: comfortable and no acute distress HENMT: Face/Nose/Sinus: Normal nares present Eyes: General: appearance normal, both eyes and all related structures Neck: Neck: no JVD Resp: Auscultation: clear to auscultation bilaterally Cardio: Rate: regular rate Rhythm: regular rhythm GI: Inspection: non-distended GI Palp: Yes Soft to palpation Skin: General skin exam: normal color Neuro: General: gait normal Speech: normal speech Extrem: General: normal to inspection Psych: Mental Status: mental status grossly normal Assessment and Plan Assessment and plan (1) Hx of colonic polyp: Code(s): Z86.010 - Personal history of colon polyps Status: Acute Assessment and Plan: colonoscopy
--- NOTE | 2024-10-01 09:40 | P.PNAN_ITS ---
Anes - Initial Pre Proc Eval Procedure: Operation Date: 10/01/24 10:30 Proposed Procedures p Screening Colonoscopy - Keenan Goncalves MD Date/Time: 10/01/24 09:40 Surgeon: Keenan Goncalves MD Pre Op Diagnosis: hx colon polyps Patient Data Age: 79 Gender: F Height: 1.7 m Weight: 70.1 kg Last Vital Signs Temp 36.1 C L 10/01/24 09:15 Pulse 88 10/01/24 09:15 Resp 16 10/01/24 09:15 BP 136/68 10/01/24 09:15 Pulse Ox 99 10/01/24 09:15 O2 Del Method Room Air 10/01/24 09:15 Allergies Allergy/AdvReac Type Severity Reaction Status Date / Time No Known Allergies Allergy Verified 10/01/24 09:26 Home Medications ?Medication ?Instructions ?Recorded ?Confirmed ?Type polyethylene glycol 3350 17 17 gm PO DAILY PRN constipation 09/14/19 10/01/24 History gram/dose oral powder (Miralax) metoprolol succinate 25 mg 25 mg PO DAILY 06/24/22 10/01/24 History tablet,extended release 24 hr rivaroxaban 20 mg tablet (Xarelto) 20 mg PO QPM 06/24/22 10/01/24 History atorvastatin 10 mg tablet 10 mg PO HS #90 tabs 01/23/24 10/01/24 Rx doxepin 10 mg capsule 10 mg PO QHS #90 caps 05/10/24 10/01/24 Rx Patient hx anesthesia problems: none Family hx anesthesia problems: none Results Review: All pre-operative results and documents have been reviewed as part of the pre- operative evaluation. [facility] Past Medical History Medical History Lack of social support Left knee DJD Lipoma of right thigh Degenerative joint disease of knee Knee joint effusion Constipation Dizziness Left knee pain Palpitations Pain of left calf Screening for breast cancer Anxiety, generalized Cyst of pancreas Hx of colonic polyp Liver hemangioma Nonspecific abnormality on liver isotope scan Other irritable bowel syndrome Postmenopausal Stress incontinence (female) (male) Surgical History Surgical History Hx laparoscopic cholecystectomy History of appendectomy H/O hysterectomy for benign disease Family History Family History Sibling Hypertension Mother Patient's mother is Acute myocardial infarction Father Patient's father is Acute myocardial infarction Other Diabetes mellitus Family history of arthritis Heart disease Social History Social History Social History: The patient lives with her and her daughter to grand children. Her is the durable power immigration attorney for healthcare. Her 2 children are adopted. 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 She is the lifelong nonsmoker. She does not use any marijuana alcohol or illicit drugs. Code status full code Smoking status: Never smoker Second hand tobacco smoke exposure: No Alcohol intake: never Alcohol use details: social Substance use: never Substance use type: does not use Other substance usage details: occasional alcohol Lack of Transportation: No Lack of Food: Never True Current Housing: I Have Housing Concerned About Future Housing: No Difficulty Paying Gas/Electric Bills: No Difficulty Paying for Meds: No Currently Unemployed: No Education: High School Diploma/GED Difficulty w/ Childcare or Family Care: No Gender identity (if verbalized by the patient): Female Spiritual care concerns: No Anes - Eval Final PreProcedure Day of Procedure 10/01/24 09:40 Patient weight: normal Heart: regular rate and rhythm Lungs: clear to auscultation Airway: Mallampati scale class II Neurological: alert and oriented Last oral intake: >/= 8 hours ASA classification: III Emergent: no Anesthetic plan: proceed Anesthesia type and monitoring: general GIVS and standard monitoring Results Review: All pre-operative results and documents have been reviewed as part of the pre- operative evaluation. Informed Consent: The patient's anesthetic plan and its attendant risks and benefits were discussed with the patient/family/POA. Questions were solicited and answers provided to the satisfaction of the patient/family/POA.
[2024-10-01] MEDS: LACTATED RINGERS 1,000 ML 150 ML IV CONT (09:42)
[2024-10-01 10:14] VITALS: BP 94/55; PULSE 74; RESP 19; O2SAT 95
[2024-10-01 10:24] VITALS: BP 105/60; PULSE 69; RESP 16; O2SAT 97
[2024-10-01 10:34] VITALS: BP 107/65; PULSE 63; RESP 18; O2SAT 100
== END 2024-10-01 10:49 | disposition home or self-care (01) ==
PROVIDERS: PCP Family Medicine; Referring Provider Nurse Practitioner Family; Visit Provider Internal Medicine Gastroenterology
PROC: 0DJD8ZZ Inspection of Lower Intestinal Tract, Via Natural or Artificial Opening Endoscopic (ICD-10-PCS; CPT 45378; principal; 2024-10-01 10:30)
DX: Z12.11 Encounter for screening for malignant neoplasm of colon (principal); K63.5 Polyp of colon; K57.30 Diverticulosis of large intestine without perforation or abscess without bleeding; K64.8 Other hemorrhoids
CPT/HCPCS: 45385; 88305; J2704; J7120

== ENCOUNTER 2024-10-28 08:09 | Outpatient (CLI) | payer MEDICARE, BC, SELFPAY ==
--- NOTE | ~2024-10-28 | US_ITS ---
EXAMINATION: US soft tissue groin RT DATE: 10/28/2024 09:00 INDICATION: Unilateral inguinal hernia without obstruction. Suprapubic pain. TECHNIQUE: Multiple grayscale and Doppler ultrasound images of the right groin were obtained. COMPARISON: CT abdomen and pelvis 04/29/2014 FINDINGS: There is no abnormal mass, lymphadenopathy, or hernia in the patient's area of concern in r ight groin. IMPRESSION: 1. No abnormality in the patient's area of concern in right groin. Reviewed, dictated and finalized at location B.
--- OUTSIDE RECORDS SUMMARY | 2024-10-28 08:21 | XMS_ITS | Clinical Summary ---
Author Organization [facility] [employer] Address [address] [place] [address] Care Team Providers Care Boot Lace Cutter Machine Name Role Phone Carloz Ashley Primary Care Provider [phone] Source Comments [facility] [employer],non-owned Affiliates and Associated Physician Practices is amultiple site organization consisting of ambulatory clinics and hospital sitesin [place], [place], [place] and [place]. This disclosure is being madepursuant to the Care Everywhere program and may not contain all information available regarding this patient. Last updated 18.[facility] [employer] Allergies No known active allergies Medications * [...] - 1-dose 75+ series) 2022 COVID-19 VACCINE ( - 2023-2 5 season) 2024 INFLUENZA VACCINE [...] to complete this topic MENINGOCOCCAL (Group B) VACC INE SHARED DECISION-MAKING Aged Out No longer eligibl e based on patient's age to complete this topic MENINGOCOCCAL GROUPS A/C/Y/W VACCINE Aged Out No longer eligible b ased on patient's age to complete this topic Care Teams Boot Lace Cutter Machine Relationship Specialty Start Date End Date Carloz Ashley DO [address] [place], [place] [id number] PCP - General 02/21/20
--- OUTSIDE RECORDS SUMMARY | 2024-10-28 08:21 | XMS_ITS | Data Portability ---
Author Organization [facility] Address [address] [place] [address] [place] [address] Care Team Providers Care Director Supplier Quality Name Role Phone SRINIVASA POTTS Primary Care [...] Vitamin D FU 1 year or prn [email or web address] Not available 03/16/2021 11:10:05 04/08/2022 04/08/2022 menopause no further pap needed mammogram due in apr colonoscopy due in 2028 dexa due Encouraged weight bearing exercise and 1500mg daily of Calcium with Vitamin D FU 1 year or prn [email or web address] Not available 04/09/2022 09:35:44 06/09/2023 06/09/2023 Annual gynecological exam performed. Patient will come back in a year unless there are new symptoms. [email or web address] Not available 06/09/2023 12:49:12 Plan of Treatment Reminders Order Date Submit Date Provider Last Modified By Organization Details Last Modified Time Details Appointments None recorded. Lab urinalysis , dipstick 2019 020 [id number] [facility], [address], [place], [address], 0 10:58:26 Referral None recorded. Procedures None recorded. Surgeries None recorded. Imaging MAMMO, diagnostic , digital, bilateral 2022 023 [facility], [address], [place], [address], 3 07:27:50 Medication Orders None recorded. Patient TargetsNo targets recorded. Patient InstructionsNo instructions recorded. Reason for Referral None Reported. Results Created Date Observation Date Name Description Value Unit Range Abnormal Flag Note LastModifiedBy Organization Detail LastModifiedTime 01/25/20 20 01/25/2020 urina lysis , dipst ick Leukocytes NEG Not Available Harika ledezma [address], [place], [address], 01/25/2020 14:20:37 04/30/20 21 04/30/2021 MAMMO , scree [place], bilat eral No observ ation record ed. [facility] [address], [place], [address], 05/01/2021 19:44:46 06/13/20 22 06/13/2022 MAMMO , scree [place], bilat eral No observ ation record ed. [address], [place], [address], 03/10/2023 12:34:12 07/01/20 23 06/30/2023 MAMMO , diagn ostic , digit al, bilat eral No observ ation record ed. [facility] [address], [place], [address], 07/01/2023 20:44:23 08/26/19 25 08/05/2024 MAMMO , scree [place], bilat eral No observ ation record ed. [place] [address], [place], [address], 08/27/2024 14:01:18 09/23/19 25 09/23/2024 imagi ng/di agnos tic resul t No observ ation record ed. [facility] [address], [place], [address], 10/06/2024 17:47:39 Result Notes None recorded. Problems Name Problem SNOMED Code Status Onset Date Resolution Date Notes Provider Name and Address Organization Details Recorded Time Screenin g for malignan t neoplasm of cervix Completed 201203/16/2021 Screenin g for malignan t neoplasm s of the cervix;R ecorded Elsewher e: No Locat ion: [facility] S ource: EHR Director [employer] miryam: N Practi ce ID: 0001 Jay lable Time: 09:30:00 AM Sabi Aguirre MD [address], [place], [address], [facility] 10:49:26 Screenin g for malignan t neoplasm of rectum Completed 201803/16/2021 Encounte r for screenin g for malignan t neoplasm of rectum;R ecorded Elsewher e: No Locat ion: [facility] S ource: EHR [employer] miryam: N Practi ce ID: 0001 Jay lable Time: 10:30:00 AM Sabi Aguirre MD [address], [place], [address], [facility] 10:49:29 Speciali zed medical examinat ion Completed 201303/16/2021 Gynecolo gical Examinat ion;Stephen rded Elsewher e: No Locat ion: [facility] S ource: EHR [employer] miryam: N Practi ce ID: 0001 Jay lable Time: 03:00:00 PM Sabi Aguirre MD [address], [place], [address], [facility] 10:49:37 Disorder of pelvic region of trunk Completed 201503/16/2021 Old lacerati on of muscle of pelvic floor;Re corded Elsewher e: No Locat ion: [facility] S ource: EHR [employer] miryam: N Miguelti ce ID: 0001 Jay lable Time: 10:15:00 AM Sabi Aguirre MD [address], [place], [address], [facility] 1 10:49:18 Disorder of pelvic region of trunk Completed 201503/16/2021 Cystocel e;Record ed Elsewher e: No Locat ion: [facility] S ource: E[employer] miryam: N Miguelti ce ID: 0001 Jay lable Time: 10:15:00 AM MD [address], [place], [address], [facility] [address] 10:49:[address] Concept Completed 201803/16/2021 Well woman check w/o abnormal finding; Recorded Elsewher e: No Locat ion: [facility] S ource: E[employer] miryam: N Miguelti ce ID: 0001 Jay lable Time: 10:30:00 AM MD [address], [place], [address], [facility] 1 10:49:34 Radiolog ic finding 268071598 Completed 201803/16/2021 Oth abn and inconclu sive findings on dx imaging of breast;R ecorded Elsewher e: No Locat ion: [facility] S ource: E[employer] miryam: N Miguelti ce ID: 0001 Jay lable Time: 03:33:45 PM MD [address], [place], [address], [facility] 10:49:13 Disorder of breast 79362693 Completed 201803/16/2021 Disorder of breast, unspecif ied;Stephen rded Elsewher e: No Locat ion: [facility] S ource: E[employer] miryam: N Practi ce ID: 0001 Jay lable Time: 10:30:00 AM Sabi Aguirre MD [address], [place], [address], [facility] 1 10:49:15 Adult health examinat ion Completed 201403/16/2021 ROUTINE MEDICAL EXAM;Rec orded Elsewher e: No Locat ion: [facility] S ource: EHR [employer] miryam: N Practi ce ID: 0001 Jay lable Time: 10:30:00 AM Sabi Aguirre MD [address], [place], [address], [facility] 1 10:49:10 Acquired atrophy of uterus 45609659 Completed 201503/16/2021 Other specifie d noninfla mmatory disorder s of uterus;P ractice ID: 0001 Sabi Aguirre MD [address], [place], [address], [facility] 10:49:[address] Concept Completed 201803/16/2021 Encntr for general adult medical exam w/o abnormal findings ;Practic e ID: 0001 Sabi Aguirre MD [address], [place], [address], [facility] 10:49:31 Female genital organ symptoms 736719705 Completed 201303/16/2021 Unspecif ied symptom associat ed with 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;R ecorded Elsewher e: No Locat ion: [facility] S ource: EHR [employer] miryam: N Practi ce ID: 0001 Jay lable Time: 03:00:00 PM Sabi Aguirre MD [address], [place], [address], [facility] 1 10:49:24 Osteopen ia 078278065 Active 2020 Sabi Aguirre MD [address], [place], [address], [facility] 1 11:10:16 History of hysterec armida 507196389 Active 2015 supracer vical and BS, ovaries in Sabi Aguirre MD [address], [place], [address], [facility] 1 11:10:50 Atrial fibrilla tion 71289526 Active 2021 Sabi Aguirre MD [address], [place], [address], [facility] 2 09:31:53 Problem Notes None recorded. Procedures Surgical History Date Name Laterality Status Provider Name and Address Organization Details Recorded Time 04/30/20 21 Date of Last Mammogram completed [facility] 04/08/2022 09:44:03 08/18/19 21 Most Recent Bone Density completed [facility] 04/08/2022 09:43:45 11/05/19 19 Date of Last Pap Smear completed [facility] 03/16/2021 09:39:15 08/18/19 19 Date of Last Colonoscopy completed [facility] 04/08/2022 09:43:37 11/13/19 16 supracervical hysterectomy completed [facility] 01/24/2020 16:46:45 11/13/19 16 sacrocolpopexy completed [facility] 01/24/2020 16:47:38 08/18/19 08 Hysteroscopy completed [facility] 01/24/2020 16:47:03 Imaging Results Imaging Date Name Status LastModified by [facility] Details LastModified Time 04/30/2021 MAMMO, screening, bilateral completed [facility] [address], [place], [address], 05/01/2021 19:44:46 06/13/2022 MAMMO, screening, bilateral completed [address] [facility] [address], [place], [address], 03/10/2023 12:34:12 06/30/2023 MAMMO, diagnostic, digital, bilateral completed [facility] [address], [place], [address], 07/01/2023 20:44:23 08/05/2024 MAMMO, screening, bilateral completed [address], [place], [address], 08/27/2024 14:01:18 09/23/2024 imaging/diagno stic result completed [address], [place], [address], 10/06/2024 17:47:39 Procedure Notes None recorded. Medical Equipment None Reported. Allergies No known drug allergies Medications Name Sig Start Date Stop Date Status Note LastModified by Organization Details LastModified Time Miralax 17 gram/dose oral powder take by oral route every day mixed with 8 oz. water, juice, soda, coffee or tea active Prescrib ed Elsewher e: Yes Loca tion: [facility] M odify By: baltazar oronauntroopa DateTime : 11/05/19 10:30:00 AM Not Available [...] Prescrib ba Hodge e: Yes Loca tion: [facility] odify By: amkuhstan Vieira ncobenja DateTime : [...] Updated DateTime 03/16/2021 167.64 cm 23.9 kg/m2 98090.67 g 114 mm[Hg] 73 mm[Hg] [facility] 1 10:41:38 Date Recorded Body height Body mass index (BMI) Body weight Systolic blood pressure Diastolic blood pressure Provider Name and Address Organization Details Last Updated DateTime 01/25/2020 167.64 cm 25.3 kg/m2 41369 g 156 mm[Hg] 80 mm[Hg] [facility] 0 14:18:53 Date Recorded Body height Body mass index (BMI) Body weight Systolic blood pressure Diastolic blood pressure Provider Name and Address Organization Details Last Updated DateTime 04/08/2022 167.64 cm 23.9 kg/m2 48597.67 g 116 mm[Hg] 73 mm[Hg] [facility] 2 09:41:58 Date Recorded Body height Body mass index (BMI) Body weight Systolic blood pressure Diastolic blood pressure Provider Name and Address Organization Details Last Updated DateTime 06/09/2023 167.64 cm 22 kg/m2 40005.72 g 125 mm[Hg] 72 mm[Hg] Brigida Ragland [facility] 3 12:55:23 Date Recorded Body height Body mass index (BMI) Body weight Systolic blood pressure Diastolic blood pressure Provider Name and Address Organization Details Last Updated DateTime 07/02/2024 167.64 cm 24.7 kg/m2 96861.63 g 147 mm[Hg] 76 mm[Hg] Moira Mary [facility] 4 13:00:13 Social History Question Answer Notes LastModified by Organizat ion Details LastModified Time Tobacco Smoking Status Never Smoker [facility] 01/24/2020 16:46:24 In The 14 Days [...] To Be High Risk For COVID-19? No [email or web address] Information not available 07/02/2024 Do You Use [...] ICD10 Code Diagnosis Note [id number] [facility] [address],[facility] [address] 01/25/2020 14:12:59 01/25/2020 16:57:18 Gynecologic examination 45278129 Z01.419 No pap needed due to age and s/p hyst. She had MMG 04/09/19 so due in March, order given. Colonoscop y 05/2019, normal per report [id number] Sabi Aguirre MD [facility] [address],[place] [address] 03/16/2021 10:22:29 03/16/2021 11:15:15 Gynecologic examination 54013300 Z01.419 Osteopenia 772009795 M85 .80 [id number] Sabi Aguirre MD [facility] [address],[place] [address] 04/08/2022 09:34:24 04/09/2022 15:30:26 Osteopenia 002587735 M85.80 History of hysterectomy 752698732 Z90.711 Menopause present 026788 006 N95.1 [id number] ISABEL VASQUEZ MD [facility] [address] [address] 06/09/2023 12:33:07 06/09/2023 13:59:55 Mass of left breast 4667535407 1206910 N63.20 - noticed asymmetric of L vs R breast after weight loss of 18 lbs this summer- no masses on exam, noticeable asymmetry of L vs R breast- diagnostic mammogram ordered Gynecologi c examination 41883619 Z01.419 Well woman care- Cervical cancer screening: Pap smear not indicated- Breast cancer screening: mammogram ordered*- Colon cancer screening: next 2028- STD testing: declines- hereditary cancer screening: does not qualify for testing Prolapse o f 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 65467066 N81.9 - s/p sacrocolpo pexy in 2016- no evidence of recurrent prolapse on exam- no issues with incontinen ce or incomplete emptying [id number] ISABEL VASQUEZ MD [facility] [address] [address] 07/02/2024 12:29:23 07/05/2024 10:50:45 Prolapse of 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 46047070 N81.9 - s/p sacrocolpo pexy in 2016- no evidence of recurrent prolapse on exam today- no issues with incontinen ce or incomplete emptying- discussed safety of vaginal intercours e, no contraindi cations following sacrocolpo pexy- discussed possible vaginal dryness due to atrophy, patient to call if she has issues Gynecologi c examination 02870790 Z01.419 [facility] woman care- Cervical cancer screening: Pap smear [...] [place] [address] [id number] Lenka Florence 01/25/2020 1 [place] Lenka Chaves Naman [id number] Lenka Florence 03/16/2021 2 [place] [address] [id number] Lenka Florence 03/16/2021 1 [place] Lenka Chaves Naman [id number] Lenka Florence 04/08/2022 2 [place] [address] [id number] Lenka Florence 04/08/2022 1 [place] Lenka Florence [id number] Lenka Florence 06/09/2023 2 [place] [address] [id number] Lenka Florence 06/09/2023 1 [place] Lenka Florence [id number] Lenka Florence 07/02/2024 2 [place] [address] [place] [id number] Lenka Florence 07/02/2024 1 [place] Lenka Florence [id number] Lenka Florence Notes Date Note Type Note [...] depression; No anxiety; No PMDD S Antione pernell, [facility] 01/25/2020 14:46:59 03/16/2021 text/html Patient is a 75y o G0 who presents for an annual exam. No concerns. supracervical hyst, ovaries in, 2016 for prolapse. last pap-2018 nilm mammo-01/2019 colonoscopy-05/2019 , 10 years dexa-11/2020 osteopenia menopause-yes sexually active-no seatbelts-y exercise-a little depression-denies domestic violence-denies tobacco-no concerns-none Sabi Aguirre MD [address], [place], [address], [facility] 03/16/2021 11:11:04 04/08/2022 text/html Patient is a 76y o G0 who presents for yearly follow up for osteopenia, breast and pelvic exam. Was diagnosed with a-fib this year and is now anticoagulated. Had a supracervical hyst and has ovaries in. mammo-04/2021 colonoscopy-05/2019 dexa-11/2020 osteopenia menopause-y sexually active-n seatbelts-y exercise-y depression-denies domestic violence-denies tobacco-n concerns-n Sabi Aguirre MD [address], [place], [address], [facility] 04/09/2022 09:35:59 06/09/2023 text/html Presents today f or her annual well-woman exam. She reports concerns of today. Denies abnormal vaginal discharge. She is sexually active and denies dyspareunia. She has not noticed any changes or masses in her breasts. Breast problem Prolapse? ISABEL VASQUEZ MD [address], [place], [address], [facility] 06/09/2023 13:52:52 07/02/2024 text/html Presents [...] smears. ISABEL VASQUEZ MD [address], [place], [address], [facility] 07/02/2024 17:51:41 OBGyn Episode No OBEpisode recorded.
--- OUTSIDE RECORDS SUMMARY | 2024-10-28 08:21 | XMS_ITS | Clinical Summary ---
Author Organization [facility] Address [address] [place] [address] Care Team Providers Care Blueprint Tracer Name Role Phone Carloz Ashley DO Primary Care Provider [phone] Allergies No known active allergies Medications polyethylene [...] (1 - Tdap) 1966 PNEUMOCOCCAL VACCINE 50+ YEARS (1 of 1 - PCV) 06/03/19 97 ZOSTER VACCINE (1 of 2) 1997 OSTEOPOROSIS SCREENING 2012 RSV VACCINE (60+ or ) (1 - 1-dose 75+ series) 2022 INFLUENZA VACCINE (#1) 2024 Insurance MEDICARE PART A AND B [facility] Care Teams Blueprint Tracer Relationship Specialty Start Date End Date Carloz Ashley DO [address] [facility] [address] [place] [address] PCP - General Internal Medicine 12/31/18
--- OUTSIDE RECORDS SUMMARY | 2024-10-28 08:21 | XMS_ITS | Referral Summary ---
Author Organization [facility] [employer] Address [address] [facility] [place] [address] Care Team Providers Care Icu Rn Name Role Phone Carloz Ashley Primary Care Provider [phone] Source Comments [facility],non-owned Affiliates and Associated Physician Practices is amultiple site organization consisting of ambulatory clinics and hospital sitesin [place], [place], [place] and [place]. This disclosure is being madepursuant to the Care Everywhere program and may not contain all information available regarding this patient. Last updated 18.[facility] [employer] Allergies No known active allergies Medications * [...] of Treatment Not on file Care Teams Icu Rn Relationship Specialty Start Date End Date Carloz Ashley DO [address] [place], [place] [id number] PCP - General 02/21/20
--- OUTSIDE RECORDS SUMMARY | 2024-10-28 08:21 | XMS_ITS | Patient Health Summary ---
Author Organization [facility] Address [address] [facility] [place] [address] Care Team Providers Care Nuclear Engineering Technician Name Role Phone Carloz Ashley Primary Care Provider [phone] Note from [facility],non-owned Affiliates and Associated Physician Practices is amultiple site organization consisting of ambulatory clinics and hospital sitesin [place], [place], [place] and [place]. This disclosure is being madepursuant to the Care Everywhere program and may not contain all information available regarding this patient. Last updated 18.[facility] Allergies No known active allergies Medications * [...] Sexual Orientation Not on file Care Teams Nuclear Engineering Technician Relationship Specialty Start Date End Date Carloz Ashley DO [address] [facility] [address] [place] [address] PCP - General 02/21/20
== END 2024-10-28 08:10 | disposition home or self-care (01) ==
PROVIDERS: PCP Family Medicine; Visit Provider Nurse Practitioner Family
DX: K40.90 Unilateral inguinal hernia, without obstruction or gangrene, not specified as recurrent (principal)
CPT/HCPCS: 76882

== ENCOUNTER 2025-08-10 07:14 | Outpatient (CLI) | payer MEDICARE, BC, SELFPAY ==
--- NOTE | ~2025-08-10 | MM_ITS ---
EXAMINATION: MM screening yaakov BI w anthony HISTORY: Screening. TECHNIQUE: Craniocaudal and mediolateral oblique 3-D tomosynthesis images were obtained and synthetic 2-D images were generated. CAD analysis was submitted and interpreted. COMPARISON: September,. 2023, 2022, and 2021. BREAST PARENCHYMAL COMPOSITION: Dense: The breasts are heterogeneously dense, which may obscure small masses. FINDINGS: No suspicious masses are seen. There are no suspicious calcifications. No unexplained architectural distortion is seen. There are no skin or nipple abnormalities identified. There is no adenopathy seen on the images submitted. IMPRESSION: No mammographic evidence to suggest malignancy is seen. The patient may return to screening mammography as per ACR guidelines. BI-RADS 1 - Negative. Reviewed, dictated and finalized at location A. [facility]
--- OUTSIDE RECORDS SUMMARY | 2025-08-10 07:18 | XMS_ITS | Clinical Summary ---
Author Organization [facility] Address [address] [facility] [place] [address] Care Team Providers Care Mold Sander Name Role Phone Carloz Ashley Primary Care Provider [phone] Allergies No known active allergies Medications polyethylene [...] A M CDT Height 167.6 cm (5' 6) 04/14/2019 10:54 AM CDT Body Mass Index 23.84 04/14/2019 10:54 AM CDT Plan of Treatment Health Maintenance Due Date Last Done Comments DTAP/TDAP/TD VACCINES (1 - Tdap) 1966 PNEUMOCOCCAL VACCINE 50+ YEARS (1 of 1 - PCV) 06/03/19 97 ZOSTER VACCINE (1 of 2) 1997 OSTEOPOROSIS SCREENING 2012 RSV VACCINE (60+ or ) (1 - 1-dose 75+ series) 2022 INFLUENZA VACCINE (#1) 2025 Insurance MEDICARE PART A AND B [facility] [employer] Care Teams Mold Sander Relationship Specialty Start Date End Date Carloz Ashley DO [address] [place] [address] PCP - General Internal Medicine 12/31/18
--- OUTSIDE RECORDS SUMMARY | 2025-08-10 07:18 | XMS_ITS | Clinical Summary ---
Author Organization [facility] [employer] Address [address] [facility] [place] [address] Care Team Providers Care Supervisor Tank Cleaning Name Role Phone Carloz Ashley Primary Care Provider [phone] Source Comments [facility],non-owned Affiliates and Associated Physician Practices is amultiple site organization consisting of ambulatory clinics and hospital sitesin [place], [place], [place] and [place]. This disclosure is being madepursuant to the Care Everywhere program and may not contain all information available regarding this patient. Last updated 18.[facility] [employer] Allergies No known active allergies Medications * Be aware that medications may not be up to date on this document. Alwaysverify current medications with the patient. Docusate Sodium (DSS) 100 MG Take by mouth DAILY. 7 Active polyethylene glycol 3350 (MIRALAX) powder Take by mouth. 7 Active traZODone (DESYREL) 50 MG tablet Take 50 mg by mouth at bedtime Active propranolol (INDERAL) 20 MG tablet propranolol [...] = 0.6 oz pur e alcohol) Comments Unknown Sex and Gender Information Value Date Recorded Sex Assigned at Not on file Legal Sex Female 5:45 PM [employer] Gender Identity Not on file Sexual Orientation [...] yrs (1 - 1-dose 75+ series) 2022 DEPRESSION SCREENING 08/18/2024 COVID-19 VACCINE (1 - 2024-2 6 season) 2025 INFLUENZA VACCINE (#1) 2025 HEPATITIS B VACCINE Aged Out No longe [...] on patient's age to complete this topic Insurance MEDICARE [facility] MEDICARE [facility] Care Teams Supervisor Tank Cleaning Relationship Specialty Start Date End Date Carloz Ashley DO [address] [place] [address] PCP - General 02/21/20
--- OUTSIDE RECORDS SUMMARY | 2025-08-10 07:18 | XMS_ITS | Data Portability ---
Author Organization [facility], [place] Address [address] [place] [address] [place] [address] Care Team Providers Care Fixture Relamper Name Role Phone SRINIVASA POTTS Primary Care [...] Vitamin D FU 1 year or prn [email or web address] Not available 03/16/2021 11:10:05 04/08/2022 04/08/2022 menopause no further pap needed mammogram due in apr colonoscopy due in 2028 dexa due 2022- Encouraged weight bearing exercise and 1500mg daily of Calcium with Vitamin D FU 1 year or prn [email or web address] Not available 04/09/2022 09:35:44 06/09/2023 06/09/2023 Annual gynecological exam performed. Patient will come back in a year unless there are new symptoms. [email or web address] Not available 06/09/2023 12:49:12 Plan of Treatment Reminders Order Date Submit Date Provider Last Modified By Organization Details Last Modified Time Details Appointments None recorded. Lab urinalysis , dipstick 2019 020 [email or web address] [facility], [address], [place], [address], 0 10:58:26 Referral None recorded. Procedures None recorded. Surgeries None recorded. Imaging MAMMO, diagnostic , digital, bilateral [address] [facility], [address], [place], [address], 3 07:27:50 Medication Orders None recorded. Patient TargetsNo targets recorded. Patient InstructionsNo instructions recorded. Reason for Referral None Reported. Results Created Date Observation Date Name Description Value Unit Range Abnormal Flag Note LastModifiedBy Organization Detail LastModifiedTime 01/25/20 20 01/25/2020 urina lysis , dipst ick Leukocytes NEG Not Available Harika ledezma [address], [place], [address], 01/25/2020 14:20:37 04/30/20 21 04/30/2021 MAMMO , scree [place], bilat eral No observ ation record ed. [facility] [address], [place], [address], 05/01/2021 19:44:46 06/13/20 22 06/13/2022 MAMMO , scree [place], bilat eral No observ ation record ed. [address], [place], [address], 03/10/2023 12:34:12 07/01/20 23 06/30/2023 MAMMO , diagn ostic , digit al, bilat eral No observ ation record ed. [facility] [address], [place], [address], 07/01/2023 20:44:23 08/26/19 25 08/05/2024 MAMMO , scree [place], bilat eral No observ ation record ed. [address], [place], [address], 08/27/2024 14:01:18 09/23/19 25 09/23/2024 imagi ng/di agnos tic resul t No observ ation record ed. [facility] [address], [place], [address], 10/06/2024 17:47:39 Result Notes None recorded. Problems Name Problem SNOMED Code Status Onset Date Resolution Date Notes Provider Name and Address Organization Details Recorded Time Screenin g for malignan t neoplasm of cervix Completed 201203/16/2021 Screenin g for malignan t neoplasm s of the cervix;R ecorded Elsewher e: No Locat ion: [facility] S ource: E[facility] Clinic Md Associate miryam: N Practi ce ID: 0001 Jay lable Time: 09:30:00 AM Sabi Aguirre MD [address], [place], [address], [facility] 10:49:26 Speciali zed medical examinat ion Completed 201303/16/2021 Gynecolo gical Examinat ion;Stephen rded Elsewher e: No Locat ion: [facility] S ource: [facility] Associate miryam: N Practi ce ID: 0001 Jay lable Time: 03:00:00 PM Sabi Aguirre MD [address], [place], [address], [facility] 10:49:37 Female genital organ symptoms 591374325 Completed 201303/16/2021 Unspecif ied symptom associat ed with 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;R ecorded Elsewher e: No Locat ion: [facility] S ource: [facility] Md Associate miryam: N Practi ce ID: 0001 Jay lable Time: 03:00:00 PM Sabi Aguirre MD [address], [place], [address], [facility] 10:49:24 Adult health examinat ion Completed 201403/16/2021 ROUTINE MEDICAL EXAM;Rec orded Elsewher e: No Locat ion: [facility] S ource: EHR Clinic Md Associate miryam: N Ernestine ce ID: 0001 Jay lable Time: 10:30:00 AM Sabi Aguirre MD [address], [place], [address], [facility] 1 10:49:10 History of hysterec armida 549541436 Active 2015 supracer vical and BS, ovaries in Sabi Aguirre MD [address], [place], [address], [facility] 1 11:10:50 Acquired atrophy of uterus 37671297 Completed 201503/16/2021 Other specifie d noninfla mmatory disorder s of uterus;P ractice ID: 0001 Sabi Aguirre MD [address], [place], [address], [facility] 1 10:49:08 Disorder of pelvic region of trunk Completed 201503/16/2021 Old lacerati on of muscle of pelvic floor;Re corded Elsewher e: No [facility] Associate miryam: Esther Sinha ce ID: 0001 Jay lable Time: 10:15:00 AM Sabi Aguirre MD [address], [place], [address], [facility] 1 10:49:18 Disorder of pelvic region of trunk Completed 201503/16/2021 Cystocel e;Record ed Elsewher e: No Locat ion: [facility] S ource: [facility] Clinic Md Associate miryam: N Ernestine ce ID: 0001 Jay lable Time: 10:15:00 AM Sabi Aguirre MD [address], [place], [address], [facility] 1 10:49:20 Evaluati on finding Completed 201803/16/2021 Oth abn and inconclu sive findings on dx imaging of breast;R ecorded Elsewher e: No Locat ion: [facility] S ource: [facility] Clinic Md Associate miryam: N Practi ce ID: 0001 Jay lable Time: 03:33:45 PM Sabi Aguirre MD [address], [place], [address], [facility] 10:49:13 Screenin g for malignan t neoplasm of rectum Completed 201803/16/2021 Encounte r for screenin g for malignan t neoplasm of rectum;R ecorded Elsewher e: No Locat ion: [facility] S ource: [facility] Md Associate miryam: N Miguelti ce ID: 0001 Jay lable Time: 10:30:00 AM Sabi Aguirre MD [address], [place], [address], [facility] 10:49:[address] Concept Completed 201803/16/2021 Well woman check w/o abnormal finding; Recorded Elsewher e: No Locat ion: [facility] S ource: [facility] Clinic Md Associate miryam: N Ernestine ce ID: 0001 Jay lable Time: 10:30:00 AM Sabi Aguirre MD [address], [place], [address], [facility] 10:49:34 Disorder of breast 04697548 Completed 201803/16/2021 Disorder of breast, unspecif ied;Stephen rded Elsewher e: No Locat ion: [facility] S ource: [facility] Clinic Md Associate miryam: N Practi ce ID: [id number] Jay lable Time: 10:30:00 AM MD [address], [place], [address], [facility] 10:49:[address] Concept Completed 201803/16/2021 Encntr for general adult medical exam w/o abnormal findings ;Practic e ID: 0001 Sabi Aguirre MD [address], [place], [address], [facility] 10:49:31 Osteopen ia 598356904 Active 2020 Sbai Aguirre MD [address], [place], [address], [facility] 11:10:16 Atrial fibrilla tion 68302200 Active 2021 Sabi Aguirre MD [address], [place], [address], [facility] 2 09:31:53 Problem Notes None recorded. Procedures Surgical History Date Name Laterality Status Provider Name and Address Organization Details Recorded Time 04/30/20 21 Date of Last Mammogram completed [facility] 04/08/2022 09:44:03 08/18/19 21 Most Recent Bone Density completed [facility] 04/08/2022 09:43:45 11/05/19 19 Date of Last Pap Smear completed [facility] 03/16/2021 09:39:15 08/18/19 19 Date of Last Colonoscopy completed [facility] 04/08/2022 09:43:37 11/13/19 16 supracervical hysterectomy completed [facility] 01/24/2020 16:46:45 11/13/19 16 sacrocolpopexy completed [facility] 01/24/2020 16:47:38 08/18/19 08 Hysteroscopy completed [facility] 01/24/2020 16:47:03 Imaging Results None recorded. Procedure Notes None recorded. Medical Equipment None Reported. Allergies No known drug allergies Medications Name Sig Start Date Stop Date Status Note LastModified by Organization Details LastModified Time Miralax 17 gram/dose oral powder take by oral route every day mixed with 8 oz. water, juice, soda, coffee or tea active Prescrib ed Elsewher e: Yes Loca tion: [facility] odify By: baltazar sharif DateTime : 11/05/19 10:30:00 AM Not Available [...] TABLET BY MOUTH 1 TIME AT BEDTIME 08/22 /2022 completed Not Available Not Available Not Available Cymbalta 20 mg capsule,d elayed release take 3 Capsule by oral route every day 06/21 completed Prescrib ed [facility] e: Yes Loca tion: [facility] M odjoey By: amsal sharif DateTime : 02/11/20 03:00:00 PM Not Available Not Available Not Available Miralax 03/16 completed Not Available Not Available Not Available Xarelto 20 mg tablet TAKE 1 TABLET DAILY active Not Available Not Available No t Available Fluzone High-Dose 2019-20 (PF) 180 mcg/0.5 mL intramusc ular syringe 01/24 completed Not Available Not Available Not Available Vitals Date Recorded Body height Body mass index (BMI) Body weight Systolic And Diastolic Provider Name and Address Organization Details Last Updated DateTime 01/25/2020 167.64 cm 25.3 kg/m2 86437 g 156/80 mm[Hg] [facility] 01/25/2020 14:18:53 Date Recorded Body height Body mass index (BMI) Body weight Systolic And Diastolic Provider Name and Address Organization Details Last Updated DateTime 03/16/2021 167.64 cm 23.9 kg/m2 71694.67 g 114/73 mm[Hg] [facility] 03/16/2021 10:41:38 Date Recorded Body height Body mass index (BMI) Body weight Systolic And Diastolic Provider Name and Address Organization Details Last Updated DateTime 04/08/2022 167.64 cm 23.9 kg/m2 24169.67 g 116/73 mm[Hg] [facility] 04/08/2022 09:41:58 Date Recorded Body height Body mass index (BMI) Body weight Systolic And Diastolic Provider Name and Address Organization Details Last Updated DateTime 06/09/2023 167.64 cm 22 kg/m2 77925.72 g 125/72 mm[Hg] Brigida Ragland [facility] 06/09/2023 12:55:23 Date Recorded Body height Body mass index (BMI) Body weight Systolic And Diastolic Provider Name and Address Organization Details Last Updated DateTime 07/02/2024 167.64 cm 24.7 kg/m2 06372.63 g 147/76 mm[Hg] Moira Mary [facility] 07/02/2024 13:00:13 Social History Question Answer Notes LastModified by [employer] Details LastModified Time Tobacco Smoking Status Never Smoker Belkis Hopkins pernell, [facility] 01/24/2020 16:46:24 In The 14 Days Before Symptom Onset, Have You Had Close Contact With A Laboratory-confirm ed COVID-19 While That Case Was Ill? No [email or web address] Information n ot available 07/02/2024 In The 14 Days Before Symptom Onset, Have You Had Close Contact With A Person Who Is Under Investigation For COVID-19 While That Person Was Ill? No [email or web address] Information not available 07/02/2024 Have You Been To An Area Known To Be High Risk For COVID-19? No Information not available 07/02/2024 Has Tobacco Cessation Counseling Been Provided? No Information not available 03/16/2021 Sex: Unknown Functional Status Question Answer Note LastModified by [employer] Details LastModified Time Do you use any illicit or recreational drugs? No Information not available 03/16/2021 Do you or have you ever used any other forms of tobacco or nicotine? No Information not available 03/16/2021 Mental Status None recorded. Family History Relationship [...] Diagnosis SNOMED-CT Code Diagnosis ICD10 Code Diagnosis IMO Codes Diagnosis Note [id number] Maylin Talbot MD [facility] [address] [address] 01/25/2020 14:12:59 01/25/2020 16:57:18 Gynecologic examination 97409146 Z01.419 No pap needed due to age and s/p hyst. She had MMG 04/09/19 so due in March, order given. Colonoscop y 05/2019, normal per report [id number] Sabi Aguirre MD [facility] [address],[place] [address] 03/16/2021 10:22:29 03/16/2021 11:15:15 Gynecologic examination 71371110 Z01.419 Osteopenia 198596003 M85 .80 [id number] Sabi Aguirre MD [facility] [address],[place] [address] 04/08/2022 09:34:24 04/09/2022 15:30:26 Osteopenia 093497157 M85.80 History of hysterectomy 091645782 Z90.711 Menopause present 666149 006 N95.1 [id number] ISABEL VASQUEZ MD [facility] [address],[place] [address] 06/09/2023 12:33:07 06/09/2023 13:59:55 Mass of left breast 1986204460 9795991 N63.20 - noticed asymmetric of L vs R breast after weight loss of 18 lbs this summer- no masses on exam, noticeable asymmetry of L vs R breast- diagnostic mammogram ordered Gynecologi c examination 55488559 Z01.419 Well woman care- Cervical cancer screening: Pap smear not indicated- Breast cancer screening: mammogram ordered*- Colon cancer screening: next 2028- STD testing: declines- hereditary cancer screening: does not qualify for testing Prolapse o f 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 43493076 N81.9 - s/p sacrocolpo pexy in 2016- no evidence of recurrent prolapse on exam- no issues with incontinen ce or incomplete emptying [id number] ISABEL VASQUEZ MD [facility] [address],[place] [address] 07/02/2024 12:29:23 07/05/2024 10:50:45 Prolapse of 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 98909109 N81.9 - s/p sacrocolpo pexy in 2016- no evidence of recurrent prolapse on exam today- no issues with incontinen ce or incomplete emptying- discussed safety of vaginal intercours e, no contraindi cations following sacrocolpo pexy- discussed possible vaginal dryness due to atrophy, patient to call if she has issues Gynecologi c examination 36546905 Z01.419 [facility]- Cervical cancer screening: Pap smear not indicated- Breast cancer screening: mammogram completed- Colon cancer screening: next 2028- STD testing: declines- hereditary cancer screening: does not qualify for testing Health Concerns Section Related Observation LastModified by Organization Detai ls LastModified Time None Recorded Concern Status LastModified by Organization Details LastModified Time None Recorded Advance Directives Directive None Recorded Payers Insurance Date Sequence Insurance Name Policy Number Policy Sommer Covered Member ID Sommer Member ID Guarantor Name 07/06/2024 2 [place] 106 Wenceslao Florence [id number] Lenka Florence 06/29/2024 1 [place] Lenka Florence [id number] Lenka Florence Notes Date Note Type Note Provider Name and Address Organization Details Recorded Time 0 text/html Annual GYNReported by PatientGenitourinary symptomsFor menstrual cycle, patient reportsnormal menses. For urinary symptoms, patient reportsno hematuriaandno incontinence. For vulva, patient reportsno genital lesion. For vagina, patient reportsnormal vaginal discharge.Breast symptomsFor breast, patient reportsno breast pain,no breast lump, andno nipple discharge.Endocrine symptomsFor sexual complaints, patient reportsno sexual complaints,no pain during intercourse, andnormal libido. For menopausal symptoms, patient reportsno menopausal symptomsandnormal vaginal lubrication.Psychological symptomsFor psychological symptoms, patient reportsno depression,no anxiety, andno pmdd. Juan gimenez [place] [facility] 01/25/2020 14:46:59 1 text/html Patient is a 75yo G0 who presents for an annual exam. No concerns. supracervical hyst, ovaries in, 2015 for prolapse. last pap-2019 nilm mammo-01/2019 colonoscopy-05/2019, 10 years dexa-11/2020 osteopenia menopause-yes sexually active-no seatbelts-y exercise-a little depression-denies domestic violence-denies tobacco-no concerns-none Sabi Aguirre MD [address], [place], [address], [facility] 03/16/2021 11:11:04 2 text/html Patient is a 76yo G0 who presents for yearly follow up for osteopenia, breast and pelvic exam. Was diagnosed with a-fib this year and is now anticoagulated. Had a supracervical hyst and has ovaries in. mammo-04/2021 colonoscopy-05/2019 dexa-11/2020 osteopenia menopause-y sexually active-n seatbelts-y exercise-y depression-denies domestic violence-denies tobacco-n concerns-n Sabi Aguirre MD [address], [place], [address], [facility] 04/09/2022 09:35:59 3 text/html Annual GYNReported by Patient Presents today for her annual well-woman exam. She reports concerns of today. Denies abnormal vaginal discharge. She is sexually active and denies dyspareunia. She has not noticed any changes or masses in her breasts. Breast problem Prolapse? ISABEL VASQUEZ MD [address], [place], [address], [facility] 06/09/2023 13:52:52 4 text/html Presents today for follow up. Denies abnormal vaginal discharge. She is not sexually active as she is concerned due to her history of sacrocolpopexy. Denies new prolapse or difficulty with urination. She has not noticed any changes or masses in her breasts. Up to date on mammograms. Next scheduled for July. Menopausal, no PMB. No hx of abnormal pap smears. ISABEL VASQUEZ MD [address], [place], [address], [facility] 07/02/2024 17:51:41 OBGyn Episode No OBEpisode recorded.
--- OUTSIDE RECORDS SUMMARY | 2025-08-10 07:18 | XMS_ITS | Clinical Summary ---
Author Organization [facility] [address] Address [address] [place] [address] Care Team Providers Care Dedicated Regional Driver Name Role Phone Vignesh Grimes MD Primary Care Provider [phone] Carloz Ashley DO Unavailable Allergies No known active allergies Medications atorvastatin (LIPITOR) 10 mg tablet Take 1 tablet (10 mg total) by mouth nightly at bedtime. 10/04/19 22 Active polyethylene glycol (MIRALAX) 17 gram/dose powder Take 17 g by mouth as needed 09/23/19 17 Active doxepin (SINEquan) 10 mg capsule 07/26/20 23 Active metoprolol XL (TOPROL-XL) 25 mg extended release tabletIndicati ons:Paroxysmal atrial flutter (HCC) Take 1 tablet (25 mg total) by mouth daily 90 tablet 6 07/28/20 24 Active cholecalcifero l (VITAMIN D-3) 2000 unit tablet Take 1 tablet (2,000 Units total) by mouth daily Active rivaroxaban (Xarelto) 20 mg tabletIndicati ons:Paroxysmal atrial flutter (HCC) Take 1 tablet (20 mg total) by mouth daily 90 tablet 08/09/20 25 Active docusate sodium (COLACE) 100 mg capsule Take 1 capsule (100 mg total) by mouth 2 (two) times a day as needed for constipation 09/23/19 17 025 Discontinu ed(No longer taking - Do not display on AVS) meclizine (ANTIVERT) 12.5 mg tablet 025 Discontinu ed(No longer taking - Do not display on AVS) rivaroxaban (Xarelto) 20 mg tabletIndicati ons:Paroxysmal atrial flutter (HCC) Take 1 tablet (20 mg total) by mouth daily 90 tablet 05/16/20 25 025 Discontinu ed(Reorder ) Active Problems Problem Noted Date Diagnosed Date Hyperkalemia 11/19/2022 Temporal pain 05/15/2022 Paroxysmal atrial flutter 02/01/2022 H/O: CVA (cerebrovascular accident) 02/01/2022 Chronic anticoagulation 02/01/2022 Mixed hyperlipidemia 02/01/2022 Palpitations 02/01/2022 Encounters Date Type Department Care Team Description 08/03/2025 9:45 AM CERTIFIED PROFESSIONAL CODER Office Visit [facility] Medical [facility] Cardiology [address] [place] [address] Kasi Brown MD Paroxysmal atrial flutter (HCC) (Primary Dx); Chronic anticoagulation; ROSARIO (dyspnea on exertion) 05/16/2025 Telephone [facility] Cardiology [address] [place] [address] Kasi Brown MD Med Refill from Last 3 Months Surgical History Surgery Date Site/Laterality Comments GALLBLADDER SURGERY TONSILLECTOMY/ADENOIDECTOMY HYSTERECTOMY Medical History Medical History Date Comments Syncope Stroke (HCC) Arthritis Arrhythmia Atrial flutter (HCC) Family History Medical History Relation Name Comments Heart disease Father Alzheimer's disease Mother Heart disease Mother Relation Name Status Comments Father (Age 82) Mother (Age 89) Social History Tobacco Use Types Packs/Day Years Used Date Smoking Tobacco: Never Smokeless Tobacco: Never Tobacco Cessation:Counseling Given: Not Answered AUDIT-C Answer Date Recorded Q1: How often do you have a drink containing alc ohol? Monthly or less 10/16/2021 Q2: How many drinks containi ng alcohol do you have on a typical day when you are drinking? 1 or 2 10/16/2021 Q3: How often do you have si x or more drinks on one occasion? Never 10/16/2021 Comments Unknown Sex and Gender Information Value Date Recorded Sex Assigned at Not on file Legal Sex Female 12:55 AM CERTIFIED PROFESSIONAL CODER Gender Identity Not on file Sexual Orientation Not on file Last Filed Vital Signs Vital Sign Reading Time Taken Comments Blood Pressure 122/62 08/03/2025 9:45 AM CERTIFIED PROFESSIONAL CODER Pulse 68 08/03/2025 9:45 AM CERTIFIED PROFESSIONAL CODER Temperature - - Respiratory Rate - - Oxygen Saturation 98% 08/03/2025 9:45 AM CERTIFIED PROFESSIONAL CODER Inhaled Oxygen Concentration - - Weight 73 kg (161 lb) 08/03/2025 9:45 AM CERTIFIED PROFESSIONAL CODER Height 167.6 cm (5' 6) 08/03/2025 9:45 AM CERTIFIED PROFESSIONAL CODER Body Mass Index 25.99 08/03/2025 9:45 AM CERTIFIED PROFESSIONAL CODER Plan of Treatment Health Maintenance Due Date Last Done Comments Depression Screening 1945 Fall Risk Assessment 1945 Hepatitis C Screening 1945 Osteoporosis Screening-Bone Density Scan 1945 Hepatitis B Screening 1965 Zoster Vaccine (1 of 2) 1997 Well Visit 65+ 2012 Covid-19 Vaccine (4 - 2024-2 6 season) 2025 06/11/2021, 10/31/2020, 10/10/2020 Influenza Vaccine (#1) 2025 , 04/19/2020, 04/19/2020, Additional history exists DTaP/Tdap/Td Vaccine (2 - Td or Tdap) 07/28/2026 07/28/2016 Pneumococcal vaccine 65+ Completed 07/28/2016, 01/2015 Insurance MEDICARE MEDICARE [facility] MEDICARE [facility] Member Subscriber Plan / Payer (Ef fective 2022-Present) Name:Lenka Florence Relation to Subscriber:Spouse Name:KRISTI FLORENCE Date of :1944 (Home) Address: [address] [place] [id number] Payer ID:[id number] (NAIC) Group ID:[id number] Type:BC ALLIANCE Address: [facility] [id number] [place] [id number] Care Teams Dedicated Regional Driver Relationship Specialty Start Date End Date Vignesh Grimes MD PCP - General Family Practice 04/04/23 Carloz Ashley DO Internal Medicine 10/04/21
== END 2025-08-10 07:15 | disposition home or self-care (01) ==
LOC: ANHFOHIMG 07:16
PROVIDERS: PCP Nurse Practitioner Family; Visit Provider Obstetrics & Gynecology
DX: Z12.31 Encounter for screening mammogram for malignant neoplasm of breast (principal)
CPT/HCPCS: 77063; 77067